=== PATIENT | female | born 1935 | race Caucasian/White ===

== ENCOUNTER 2016-07-20 09:07 | Emergency (ER) | payer OTHER, MEDICAID ==
[~2016-07-20] VITALS: Ht 157.5 cm; Wt 76.5 kg
[~2016-07-20 09:07] MED LIST: ASPI81TA3 PO; ATOR40TA68 PO; CETI-240 PO; CHOL20003 PO; FAMO20TA18 PO; LANT3I SC; LISI-313 PO; MTF1000T PO; ONDA4TAB8 PO; PANT40TA4 PO; TRAM50TA2 PO
[2016-07-20 09:13] VITALS: Ht 157.5 cm; Wt 76.5 kg
[2016-07-20] MEDS ORDERED: METOCLOPRAMIDE 10 MG INJ IV STA (10:11)
[2016-07-20] MEDS ORDERED: SOD CHLORIDE 0.9% 1,000 ML IV STA (10:11)
--- NOTE | 2016-07-20 10:17 | ERD ---
ER Documentation Chief Complaint Date/Time DATE: 07/20/16 TIME: 10:13 Chief Complaint Complains of weakness,vomiting and dizziness x 4 days, HX of Diabestes HPI HPI: Patient is a 81-year-old female who presents with gradual onset, constant, moderate, dull right upper quadrant pain associated with nausea. Denies vomiting or diarrhea, denies fever. States that she feels lightheaded. No vertigo. No palpitations, chest pain, shortness of breath, pain on deep inspiration. Pain radiates to the flank. No constipation or obstipation. Patient's daughter notes that the patient has had these same symptoms for several years intermittently. She seen a GI doctor, but no diagnosis has been established. Occasionally she has had elevated LFTs, which has been attributed to medications. ROS All systems reviewed and are negative except as per history of present illness. Medications Home Meds Active Scripts Famotidine* (Pepcid*) 20 Mg Tablet, 20 MG PO BID, #30 TAB Prov:NOLBERTO LUNDBERG MD 07/20/16 Ondansetron Hcl* (Zofran*) 4 Mg Tablet, 4 MG PO Q8H Y for NAUSEA AND/OR VOMITING , #15 TAB Prov:NOLBERTO LUNDBERG MD 07/20/16 Tramadol HCl (Tramadol HCl) 50 Mg Tablet, 50 MG PO Q8 Y for PAIN, #9 TAB Prov:POOL MELENDEZ MD 11/30/15 Ondansetron Hcl* (Zofran*) 4 Mg Tablet, 4 MG PO Q6H for NAUSEA AND/OR VOMITING, #30 TAB Prov:CHARLIE LOCKHART 10/12/15 Reported Medications Memantine* (Namenda*) 10 Mg Tablet, 10 MG PO DAILY, #30 TAB 07/20/16 Losartan Potassium* (Losartan Potassium*) 25 Mg Tablet, 12.5 MG PO BID, TAB 07/20/16 Aspirin* (Aspirin* EC) 81 Mg Tablet.dr, 81 MG PO DAILY, TAB 07/20/16 Pantoprazole* (Pantoprazole*) 40 Mg Tablet.dr, 40 MG PO AC BREAKFAST, TAB 11/30/15 Insulin Glargine* (Lantus*) 100 Unit/Ml Soln, 35 UNIT SC QHS, #1 VIAL 10/12/15 Atorvastatin* (Atorvastatin*) 40 Mg Tablet, 40 MG PO QHS, #30 TAB 10/12/15 Cholecalciferol (Vitamin D3) (VITAMIN D-3) 2,000 Unit Capsule, 2000 UNIT PO DAILY 05/20/14 Metformin* (Glucophage*) 1,000 Mg Tablet, 1000 MG PO BID WITH MEALS, TAB 03/06/14 Discontinued Reported Medications Aspirin* (Aspirin* Chew) 81 Mg Tab.chew, 81 MG PO DAILY, TAB.CHEW 11/30/15 Cetirizine Hcl* (Cetirizine Hcl*) 10 Mg Tablet, 10 MG PO DAILY, #30 TAB 10/12/15 Lisinopril* (Lisinopril*) 5 Mg Tablet, 5 MG PO DAILY, #30 TAB 10/12/15 Famotidine* (Famotidine*) 20 Mg Tablet, 20 MG PO BID, #60 TAB 10/12/15 Allergies Allergies: Coded Allergies: No Known Allergies (Verified Allergy, Unknown, 10/12/15) PMhx/Soc Past medical history: Diabetes, hypertension, hypercholesterolemia Past surgical history: Remote history of cholecystectomy. Social history: Denies tobacco or alcohol History of Surgery: Yes (cholecystectomy (40 yrs ago)) Anesthesia Reaction: No Hx Neurological Disorder: Yes (headaches ) Hx Respiratory Disorders: No Hx Cardiac Disorders: Yes (HTN, dyslipidemia ) Hx Psychiatric Problems: No Hx Miscellaneous Medical Probl: Yes (DM ) Hx Alcohol Use: No Hx Substance Use: No Hx Tobacco Use: No Smoking Status: Never smoker FmHx Family History: diabetes Physical Exam Vitals Vital Signs Date Time Temp Pulse Resp B/P Pulse Ox O2 Delivery O2 Flow Rate FiO2 07/20/16 11:15 80 20 140/79 99 Room Air 07/20/16 09:13 97.8 92 20 179/79 97 Physical Exam Const: Alert, no acute distress Head: Atraumatic Eyes: Normal Conjunctiva, no pallor or icterus ENT: Normal External Ears, Nose and Mouth. Moist mucous membranes Neck: Full range of motion. No meningismus. Resp: Clear to auscultation bilaterally, no wheezes, no rales Cardio: Regular rate and rhythm, no murmurs Abd: Soft, minimal tenderness in right upper quadrant, non distended. No guarding, no rebound. Skin: No petechiae or rashes, no dermatomal lesions Back: No midline or flank tenderness. No CVA tenderness Ext: No cyanosis, trace edema bilateral ankles Neur: Awake and alert, cranial nerves II through XII intact, no nystagmus, strength and sensation intact in 4 extremities. Psych: Normal Mood and Affect Result Diagram: 07/20/16 1020 07/20/16 1020 Results 24 hrs Laboratory Tests Test 07/20/16 10:20 White Blood Count 8.910^3/ul Red Blood Count 3.8410^6/ul Hemoglobin 10.7g/dl Hematocrit 33.1% Mean Corpuscular Volume 86.2fl Mean Corpuscular Hemoglobin 27.9pg Mean Corpuscular Hemoglobin Concent 32.3g/dl Red Cell Distribution Width 15.3% Platelet Count 53235^3/UL Mean Platelet Volume 9.8fl Neutrophils % 72.1% Lymphocytes % 20.1% Monocytes % 5.2% Eosinophils % 1.6% Basophils % 0.7% Nucleated Red Blood Cells % 0.0/100WBC Neutrophils # 6.410^3/ul Lymphocytes # 1.810^3/ul Monocytes # 0.510^3/ul Eosinophils # 0.110^3/ul Basophils # 0.110^3/ul Nucleated Red Blood Cells # 0.010^3/ul Urine Color LT. YELLOW Urine Clarity CLEAR Urine pH 7.0 Urine Specific [place] 1.010 Urine Ketones NEGATIVE Urine Nitrite NEGATIVE Urine Bilirubin NEGATIVE Urine Urobilinogen 0.2 E.U./dL Urine Leukocyte Esterase TRACE Urine Microscopic RBC NONE SEEN/HPF Urine Microscopic WBC 0-2/HPF Urine Squamous Epithelial Cells FEW Urine Hemoglobin NEGATIVE Urine Glucose NEGATIVE% Urine Total Protein NEGATIVE Sodium Level 140mmol/L Potassium Level 4.3mmol/L Chloride Level 99mmol/L Carbon Dioxide Level 33mmol/L Anion Gap 12 Blood Urea Nitrogen 16mg/dl Creatinine 0.80mg/dl Glucose Level 184mg/dl Calcium Level 9.7mg/dl Total Bilirubin 1.1mg/dl Direct Bilirubin 0.00mg/dl Indirect Bilirubin 1.1mg/dl Aspartate Amino Transf (AST/SGOT) 34IU/L Alanine Aminotransferase (ALT/SGPT) 38IU/L Alkaline Phosphatase 141IU/L Total Protein 7.4g/dl Albumin 4.2g/dl Globulin 3.20g/dl Albumin/Globulin Ratio 1.31 Lipase 102U/L Current Medications Medications (Trade) Dose Ordered Sig/Susan Route PRN Reason Start Time Stop Time Status Last Admin Dose Admin Sodium Chloride (NS) 1,000 ml @ 1,000 mls/hr Q1H STAT IV 07/20/16 10:11 07/20/16 11:10 DC 07/20/16 10:27 Metoclopramide HCl (Reglan) 10 mg ONCE STAT IV 07/20/16 10:11 07/20/16 10:13 DC 07/20/16 10:26 Famotidine (Pepcid Iv) 20 mg ONCE ONCE IV 07/20/16 10:30 07/20/16 10:31 DC 07/20/16 10:26 Procedures/MDM EKG read by me: Time 11 00, rate 101 Rhythm: Sinus tachycardia Sullivan: Normal Intervals: Normal ST-T waves: Nonspecific T-wave changes do not appear ischemic Ectopy: No Q-waves: No Impression: Sinus tachycardia, no evidence of ischemia MDM: Patient is a 81-year-old female with history of chronic intermittent right upper quadrant pain associated with nausea. She seen a capacity planning analyst numerous times without diagnosis. She presents with increased symptoms for the last 3 days. No fever no vomiting or diarrhea no constipation. Labs including LFTs and lipase are unremarkable. The patient states that she feels completely better after receiving Pepcid and Reglan. She has a benign abdominal exam. Patient at this time would like to go home and eat lunch. The patient has had prior CT scans in the setting of the same pain that have not demonstrated acute pathology. The patient has diabetes that is well controlled. Given chronicity of symptoms and benign labs and exam, I believe it is safe to discharge the patient home at this time. I have advised her to return to the ER for any worsening symptoms and to follow-up with her PMD and capacity planning analyst in the next week. I will give her prescription for Zofran and Pepcid for symptomatic treatment. Departure Diagnosis: Primary Impression: Abdominal pain Abdominal location: right upper quadrant Qualified Code: R10.11 - Right upper quadrant abdominal pain Additional Impression: Nausea Condition: NOLBERTO Avila MD Jul 20, 2016 10:16
[2016-07-20] MEDS ORDERED: FAMOTIDINE 20 MG INJ IV ONE (10:30)
[2016-07-20 10:32] LABS: ADD SCAN DIFF NO
[2016-07-20 10:35] LABS: ADD UMIC YES; URINE BILIRUBIN (Dip) NEGATIVE (NEGATIVE); URINE BLOOD (Dip) NEGATIVE (NEGATIVE); URINE COLOR LT. YELLOW (YELLOW); URINE GLUCOSE (Dip) NEGATIVE (NEGATIVE); URINE KETONES (Dip) NEGATIVE (NEGATIVE); URINE LEUKOCYTE ESTERASE (Dip) TRACE (NEGATIVE); URINE NITRITE (Dip) NEGATIVE (NEGATIVE); URINE TOTAL PROTEIN (Dip) NEGATIVE (NEGATIVE); URINE UROBILINOGEN (Dip) 0.2 E.U./dL (0.1-1.0)
[2016-07-20 10:38] LABS: BASOPHIL # 0.1 10^3/ul (0.0-0.1); BASOPHILS % 0.7 % (0.0-2.0); EOSINOPHILS # 0.1 10^3/ul (0.0-0.5); EOSINOPHILS % 1.6 % (0.0-7.0); HEMATOCRIT 33.1 % (37.0-47.0); HEMOGLOBIN 10.7 g/dl (12.0-16.0); LYMPHOCYTES # 1.8 10^3/ul (0.8-2.9); LYMPHOCYTES % 20.1 % (15.0-51.0); MEAN CORPUSCULAR HEMOGLOBIN 27.9 pg (29.0-33.0); MEAN CORPUSCULAR HGB CONC 32.3 g/dl (32.0-37.0); MEAN CORPUSCULAR VOLUME 86.2 fl (82.0-101.0); MEAN PLATELET VOLUME 9.8 fl (7.4-10.4); MONOCYTE # 0.5 10^3/ul (0.3-0.9); MONOCYTES % 5.2 % (0.0-11.0); NEUTROPHIL # 6.4 10^3/ul (1.6-7.5); NEUTROPHILS % 72.1 % (39.0-77.0); PLATELET COUNT 293 10^3/UL (140-415); RED BLOOD COUNT 3.84 10^6/ul (4.20-5.40); RED CELL DISTRIBUTION WIDTH 15.3 % (11.5-14.5); WHITE BLOOD COUNT 8.9 10^3/ul (4.8-10.8)
[2016-07-20 10:48] LABS: ALBUMIN 4.2 g/dl (3.3-4.9)
[2016-07-20 10:49] LABS: POTASSIUM 4.3 mmol/L (3.5-5.1); SQUAMOUS EPITHELIAL CELL,UR FEW; URINE RBCS NONE SEEN /HPF (0)
[2016-07-20 10:51] LABS: ALBUMIN/GLOBULIN RATIO 1.31; BILIRUBIN,INDIRECT 1.1 mg/dl (0-1.1); BILIRUBIN,TOTAL 1.1 mg/dl (0.2-1.3); CREATININE 0.8 mg/dl (0.44-1.00); TOTAL PROTEIN 7.4 g/dl (6.1-8.1)
[2016-07-20 10:52] LABS: CALCIUM 9.7 mg/dl (8.4-10.2)
[2016-07-20 11:15] VITALS: BP 140/79; PULSE 80; RESP 20
[2016-07-20] MEDS ORDERED: ASPI-664 PO (12:12)
[2016-07-20] MEDS ORDERED: LOSA25TA5 PO (12:13)
[2016-07-20] MEDS ORDERED: MEMA10TA16 PO (12:14)
[2016-07-20] MEDS ORDERED: FAMO-18 PO (12:32)
[2016-07-20] MEDS ORDERED: ONDA4TAB8 PO (12:32)
== END 2016-07-20 12:39 | disposition home or self-care (01) ==
LOC: E/R 09:07
DX: R10.11 Right upper quadrant pain (principal); R11.0 Nausea; I10 Essential (primary) hypertension; E11.9 Type 2 diabetes mellitus without complications; Z79.4 Long term (current) use of insulin; Z79.82 Long term (current) use of aspirin; Z79.84 Long term (current) use of oral hypoglycemic drugs
CPT/HCPCS: 36415; 80053; 81001; 83690; 85025; 93005; 96374; 96375; 99284; J2765; J7030; 81003

== ENCOUNTER 2016-07-25 07:42 | Emergency (ER) | payer OTHER, MEDICAID ==
[~2016-07-25] VITALS: Ht 160 cm; Wt 79.6 kg
[~2016-07-25 07:42] MED LIST changes: +ASPI-664 PO; -ASPI81TA3 PO; -CETI-240 PO; +FAMO-18 PO; -FAMO20TA18 PO; -LISI-313 PO; +LOSA25TA5 PO; +MEMA10TA16 PO
[2016-07-25 07:47] VITALS: Ht 160 cm; Wt 79.6 kg
[2016-07-25] MEDS ORDERED: SOD CHLORIDE 0.9% 1,000 ML IV STA (08:04)
[2016-07-25] MEDS ORDERED: morphine 4 MG/ML VIAL IV STA (08:04)
[2016-07-25] MEDS ORDERED: ONDANSETRON 4 MG INJ IV STA (08:04)
[2016-07-25 08:05] VITALS: TEMP 98.9
--- NOTE | 2016-07-25 08:38 | RADRPT ---
PROCEDURE: XR Chest. CLINICAL INDICATION: Chest pain , abdominal pain TECHNIQUE: Single frontal view of the chest was obtained COMPARISON: 10/12/2015 FINDINGS: The heart is enlarged. The thoracic aorta is calcified. The lungs are clear. There is no pleural effusion or pneumothorax. RPTAT: AA IMPRESSION: Mild cardiomegaly. Calcified aorta consistent with atherosclerotic disease. .Nemesio Daniel MD, MD Date Time Electronically viewed and signed by .Nemesio Daniel MD, on 07/25/2016 08:38 .S/
[2016-07-25 08:39] LABS: ADD SCAN DIFF NO
[2016-07-25 08:47] LABS: BASOPHILS % 0.3 % (0.0-2.0); EOSINOPHILS # 0.2 10^3/ul (0.0-0.5); EOSINOPHILS % 1.9 % (0.0-7.0); HEMATOCRIT 33.8 % (37.0-47.0); LYMPHOCYTES # 2.1 10^3/ul (0.8-2.9); LYMPHOCYTES % 22.4 % (15.0-51.0); MEAN CORPUSCULAR HEMOGLOBIN 27.8 pg (29.0-33.0); MEAN CORPUSCULAR HGB CONC 32.5 g/dl (32.0-37.0); MEAN CORPUSCULAR VOLUME 85.4 fl (82.0-101.0); MEAN PLATELET VOLUME 9.9 fl (7.4-10.4); MONOCYTE # 0.5 10^3/ul (0.3-0.9); MONOCYTES % 5.7 % (0.0-11.0); NEUTROPHIL # 6.4 10^3/ul (1.6-7.5); NEUTROPHILS % 69.3 % (39.0-77.0); PLATELET COUNT 304 10^3/UL (140-415); RED BLOOD COUNT 3.96 10^6/ul (4.20-5.40); RED CELL DISTRIBUTION WIDTH 15.2 % (11.5-14.5); WHITE BLOOD COUNT 9.2 10^3/ul (4.8-10.8)
[2016-07-25 08:57] LABS: ALBUMIN 4.6 g/dl (3.3-4.9); CHLORIDE 101 mmol/L (97-110)
[2016-07-25 08:58] LABS: POTASSIUM 3.6 mmol/L (3.5-5.1); SODIUM 143 mmol/L (135-144)
[2016-07-25 09:00] LABS: ALANINE AMINOTRANSFERASE 40 IU/L (13-69); ALBUMIN/GLOBULIN RATIO 1.27; ALKALINE PHOSPHATASE 127 IU/L (42-121); ANION GAP 17 (8-16); ASPARTATE AMINO TRANSFERASE 37 IU/L (15-46); BILIRUBIN,INDIRECT 0.8 mg/dl (0-1.1); BILIRUBIN,TOTAL 0.8 mg/dl (0.2-1.3); BLOOD UREA NITROGEN 16 mg/dl (7-20); CARBON DIOXIDE 29 mmol/L (21-31); CREATININE 0.86 mg/dl (0.44-1.00); GLUCOSE 182 mg/dl (70-220); TOTAL PROTEIN 8.2 g/dl (6.1-8.1)
[2016-07-25 09:01] LABS: CALCIUM 9.9 mg/dl (8.4-10.2)
[2016-07-25 09:13] LABS: TROPONIN-I < 0.012 ng/ml (0.00-0.12)
--- NOTE | 2016-07-25 10:08 | RADRPT ---
PROCEDURE: CT Head without contrast. CLINICAL INDICATION: Headache TECHNIQUE: Continuous axial CT images were obtained from the base of skull to the vertex. No cont rast was administered. The calculated radiation dose measures 630 mGy centimeters. The CTDI measures 45 mGy COMPARISON: No prior studies are available for comparison. FINDINGS: There is mild to moderate diffuse cerebral volume loss. The ventricles are symmetric and normal in configuration. There is no mass effect or midline shift. There is no abnormal intra-axial or extra -axial fluid collection. There is no evidence of intracranial hemorrhage. There are scattered areas of decreased attenuation in the supratentorial white matter, consistent wi th mild to moderate small vessel ischemic changes. There is minimal atherosclerotic vascular calcifi cation. The bony calvarium is intact. The orbital soft tissue contents are unremarkable. Paranasal sinuses appear clear. IMPRESSION: 1. Mild to moderate age related cerebral volume loss. Mild to moderate small vessel ischemic tong es. 2. Minimal atherosclerotic vascular calcification. 3. No mass effect or acute intracranial bleed. RPTAT: DD .Yariel Peña MD, Date Time Electronically viewed and signed by .Yariel Peña MD, on 07/25/2016 10:08 .T/
--- NOTE | 2016-07-25 10:21 | RADRPT ---
PROCEDURE: CT abdomen and pelvis without contrast. CLINICAL INDICATION: Abdominal Pain TECHNIQUE: CT scan of the abdomen and pelvis without contrast was performed. The patient was scan evaristo without intravenous contrast. 3-D coronal reformatted images were obtained from the axial [facility] e images. The calculated radiation dose measures 1040 mGy centimeters. The CTDI measures 18 mGy COMPARISON: 10/12/2015 FINDINGS: CT abdomen: There is moderate aortic valve calcification and coronary artery calcification. There are scattered small 2 to 3 mm lung nodules, seen for example in the left lower lobe on image 03-04, in the lingul a on image 03-08, and in the right lower lobe on image 03-24. The liver is normal in size and density, without intrahepatic biliary dilatation. The spleen and p ancreas are unremarkable noncontrast appearance. The gallbladder is not seen, likely surgically abse nt.. The adrenal glands are symmetric and normal. The kidneys appear normal in size and contour. No renal calculus or hydronephrosis is visualized. There is no ascites or retroperitoneal lymphadenopathy. There is moderate aortic and branch vessel c alcification. There is a duodenal diverticulum is, approximately 2 cm. There is colonic diverticulosis, without vi sualized diverticulitis. The appendix appears normal. CT pelvis: The urinary bladder appears normal. The pelvic organs are within normal limits. There is no abnorm al pelvic mass or adenopathy. There is no pelvic free fluid. Visualized osseous structures appear unremarkable. IMPRESSION: 1. Moderate aortic valve calcification and coronary artery calcification. 2. Scattered 2 to 3 mm lung nodules at the lung bases. 12-month follow-up is recommended if there are risk factors for lung cancer. 3. The appendix is seen and appears within normal limits. No renal calculi or hydronephrosis. 4. Duodenal diverticulum. 5. Colonic diverticulosis, without visualized diverticulitis. RPTAT: DD .Yariel Peña MD, Date Time Electronically viewed and signed by .Yariel Peña MD, MD on 07/25/2016 10:21 .T/
[2016-07-25 10:33] LABS: ADD UMIC NO; URINE BILIRUBIN (Dip) NEGATIVE (NEGATIVE); URINE BLOOD (Dip) NEGATIVE (NEGATIVE); URINE COLOR LT. YELLOW (YELLOW); URINE GLUCOSE (Dip) NEGATIVE (NEGATIVE); URINE KETONES (Dip) NEGATIVE (NEGATIVE); URINE LEUKOCYTE ESTERASE (Dip) NEGATIVE (NEGATIVE); URINE NITRITE (Dip) NEGATIVE (NEGATIVE); URINE TOTAL PROTEIN (Dip) NEGATIVE (NEGATIVE); URINE UROBILINOGEN (Dip) 0.2 E.U./dL (0.1-1.0)
[2016-07-25 10:43] VITALS: BP 139/64; PULSE 64; RESP 13
[2016-07-25] MEDS ORDERED: DOCU-144 PO (10:56)
[2016-07-25] MEDS ORDERED: ONDA4TAB14 PO (10:56)
[2016-07-25] MEDS ORDERED: HYDR-906 PO (10:56)
--- NOTE | 2016-07-25 10:58 | ERD ---
ER Documentation Chief Complaint Date/Time DATE: 07/25/16 TIME: 10:57 Chief Complaint seen last thursday with same, back,abd,shakey ,sob due pain ROS All systems reviewed and are negative except as per history of present illness. Medications Home Meds Active Scripts Docusate Sodium* (Colace*) 100 Mg Capsule, 100 MG PO TID, #30 CAP Prov:IVA DAUGHERTY MD 07/25/16 Ondansetron (Ondansetron Odt) 4 Mg Tab.rapdis, 4 MG PO Q6H Y for NAUSEA AND/OR VOMITING, #30 TAB Prov:IVA DAUGHERTY MD 07/25/16 Hydrocodone/Acetaminophen ([place] 5-325 Tablet) 1 Each Tablet, 1 TAB PO Q6H Y for PAIN, #7 TAB Prov:IVA DAUGHERTY MD 07/25/16 Reported Medications Memantine* (Namenda*) 10 Mg Tablet, 10 MG PO DAILY, #30 TAB 07/20/16 Losartan Potassium* (Losartan Potassium*) 25 Mg Tablet, 12.5 MG PO BID, TAB 07/20/16 Aspirin* (Aspirin* EC) 81 Mg Tablet.dr, 81 MG PO DAILY, TAB 07/20/16 Pantoprazole* (Pantoprazole*) 40 Mg Tablet.dr, 40 MG PO AC BREAKFAST, TAB 11/30/15 Insulin Glargine* (Lantus*) 100 Unit/Ml Soln, 35 UNIT SC QHS, #1 VIAL 10/12/15 Atorvastatin* (Atorvastatin*) 40 Mg Tablet, 40 MG PO QHS, #30 TAB 10/12/15 Cholecalciferol (Vitamin D3) (VITAMIN D-3) 2,000 Unit Capsule, 2000 UNIT PO DAILY 05/20/14 Metformin* (Glucophage*) 1,000 Mg Tablet, 1000 MG PO BID WITH MEALS, TAB 03/06/14 Discontinued Reported Medications Aspirin* (Aspirin* Chew) 81 Mg Tab.chew, 81 MG PO DAILY, TAB.CHEW 11/30/15 Cetirizine Hcl* (Cetirizine Hcl*) 10 Mg Tablet, 10 MG PO DAILY, #30 TAB 10/12/15 Lisinopril* (Lisinopril*) 5 Mg Tablet, 5 MG PO DAILY, #30 TAB 10/12/15 Famotidine* (Famotidine*) 20 Mg Tablet, 20 MG PO BID, #60 TAB 10/12/15 Discontinued Scripts Famotidine* (Pepcid*) 20 Mg Tablet, 20 MG PO BID, #30 TAB Prov:NOLBERTO LUNDBERG MD 07/20/16 Ondansetron Hcl* (Zofran*) 4 Mg Tablet, 4 MG PO Q8H Y for NAUSEA AND/OR VOMITING , #15 TAB Prov:NOLBERTO LUNDBERG MD 07/20/16 Tramadol HCl (Tramadol HCl) 50 Mg Tablet, 50 MG PO Q8 Y for PAIN, #9 TAB Prov:POOL MELENDEZ MD 11/30/15 Ondansetron Hcl* (Zofran*) 4 Mg Tablet, 4 MG PO Q6H for NAUSEA AND/OR VOMITING, #30 TAB Prov:CHARLIE LOCKHART 10/12/15 Allergies Allergies: Coded Allergies: No Known Allergies (Verified Allergy, Unknown, 10/12/15) PMhx/Soc History of Surgery: Yes (cholecystectomy (40 yrs ago)) Anesthesia Reaction: No Hx Neurological Disorder: Yes (headaches ) Hx Respiratory Disorders: No Hx Cardiac Disorders: Yes (HTN, dyslipidemia ) Hx Psychiatric Problems: No Hx Miscellaneous Medical Probl: Yes (DM ) Hx Alcohol Use: No Hx Substance Use: No Hx Tobacco Use: No Physical Exam Vitals Vital Signs Date Time Temp Pulse Resp B/P Pulse Ox O2 Delivery O2 Flow Rate FiO2 07/25/16 10:43 64 13 139/64 96 Room Air 07/25/16 08:05 98.9 86 17 176/75 98 Room Air 07/25/16 07:47 98.1 88 20 170/79 99 Physical Exam Const: [] Head: Atraumatic Eyes: Normal Conjunctiva ENT: Normal External Ears, Nose and Mouth. Neck: Full range of motion..~ No meningismus. Resp: Clear to auscultation bilaterally Cardio: Regular rate and rhythm, no murmurs Abd: Soft, non tender, non distended. Normal bowel sounds Skin: No petechiae or rashes Back: No midline or flank tenderness Ext: No cyanosis, or edema Neur: Awake and alert Psych: Normal Mood and Affect Result Diagram: 07/25/16 0825 07/25/16 0825 Results 24 hrs Laboratory Tests Test 07/25/16 08:25 07/25/16 10:05 White Blood Count 9.210^3/ul Red Blood Count 3.9610^6/ul Hemoglobin 11.0g/dl Hematocrit 33.8% Mean Corpuscular Volume 85.4fl Mean Corpuscular Hemoglobin 27.8pg Mean Corpuscular Hemoglobin Concent 32.5g/dl Red Cell Distribution Width 15.2% Platelet Count 13069^3/UL Mean Platelet Volume 9.9fl Neutrophils % 69.3% Lymphocytes % 22.4% Monocytes % 5.7% Eosinophils % 1.9% Basophils % 0.3% Nucleated Red Blood Cells % 0.0/100WBC Neutrophils # 6.410^3/ul Lymphocytes # 2.110^3/ul Monocytes # 0.510^3/ul Eosinophils # 0.210^3/ul Basophils # 0.010^3/ul Nucleated Red Blood Cells # 0.010^3/ul Sodium Level 143mmol/L Potassium Level 3.6mmol/L Chloride Level 101mmol/L Carbon Dioxide Level 29mmol/L Anion Gap 17 Blood Urea Nitrogen 16mg/dl Creatinine 0.86mg/dl Glucose Level 182mg/dl Calcium Level 9.9mg/dl Total Bilirubin 0.8mg/dl Direct Bilirubin 0.00mg/dl Indirect Bilirubin 0.8mg/dl Aspartate Amino Transf (AST/SGOT) 37IU/L Alanine Aminotransferase (ALT/SGPT) 40IU/L Alkaline Phosphatase 127IU/L Troponin I < 0.012ng/ml Total Protein 8.2g/dl Albumin 4.6g/dl Globulin 3.60g/dl Albumin/Globulin Ratio 1.27 Lipase 99U/L Urine Color LT. YELLOW Urine Clarity CLEAR Urine pH 6.0 Urine Specific [place] <=1.005 Urine Ketones NEGATIVE Urine Nitrite NEGATIVE Urine Bilirubin NEGATIVE Urine Urobilinogen 0.2 E.U./dL Urine Leukocyte Esterase NEGATIVE Urine Hemoglobin NEGATIVE Urine Glucose NEGATIVE% Urine Total Protein NEGATIVE Current Medications Medications (Trade) Dose Ordered Sig/Susan Route PRN Reason Start Time Stop Time Status Last Admin Dose Admin Sodium Chloride (NS) 1,000 ml @ 1,000 mls/hr Q1H STAT IV 07/25/16 08:04 07/25/16 09:03 DC 07/25/16 08:38 Morphine Sulfate (morphine) 4 mg ONCE STAT IV 07/25/16 08:04 07/25/16 08:05 DC 07/25/16 08:38 Ondansetron HCl (Zofran Inj) 4 mg ONCE STAT IV 07/25/16 08:04 07/25/16 08:05 DC 07/25/16 08:37 Procedures/MDM EKG read by me: Rate/Rhythm: Regular rate and rhythm at a rate of 79 Intervals: Normal Impression: No evidence of ischemia or arrhythmia Departure Diagnosis: Primary Impression: Headache Additional Impression: Abdominal pain Condition: Fair Patient Instructions: Abdominal Pain, Self-Care for Headaches Additional Instructions: Llame al doctor MAANA y gerardo suki SUSAN PARA DENTRO DE 1-2 LEES.Dgale a la secretaria que nosotros le instruimos hacer esta susan.Avise o llame si garvey condicin se empeora antes de la susan. Regresa aqui si peor o no mejor. IVA DAUGHERTY MD Jul 25, 2016 10:58
== END 2016-07-25 11:16 | disposition home or self-care (01) ==
LOC: E/R 07:42
DX: R51 Headache (principal); R10.9 Unspecified abdominal pain; E11.9 Type 2 diabetes mellitus without complications; I10 Essential (primary) hypertension; Z79.82 Long term (current) use of aspirin; Z79.84 Long term (current) use of oral hypoglycemic drugs
CPT/HCPCS: 70450; 71010; 74176; 80053; 81003; 83690; 84484; 85025; 93005; J2270; J2405; J7030; 36415; 96374; 96375

== ENCOUNTER 2016-07-27 04:25 | Emergency (ER) | payer OTHER, MEDICAID ==
[~2016-07-27] VITALS: Ht 162.6 cm; Wt 76.5 kg
[~2016-07-27 04:25] MED LIST changes: +DOCU-144 PO; -FAMO-18 PO; +HYDR-906 PO; +ONDA4TAB14 PO; -ONDA4TAB8 PO; -TRAM50TA2 PO
[2016-07-27 04:30] VITALS: Ht 162.6 cm; Wt 76.5 kg
[2016-07-27 05:18] VITALS: TEMP 98.2
[2016-07-27 05:25] LABS: ADD SCAN DIFF NO
[2016-07-27 05:40] LABS: BASOPHIL # 0.1 10^3/ul (0.0-0.1); BASOPHILS % 0.5 % (0.0-2.0); EOSINOPHILS # 0.3 10^3/ul (0.0-0.5); EOSINOPHILS % 2.7 % (0.0-7.0); HEMATOCRIT 33.6 % (37.0-47.0); HEMOGLOBIN 10.9 g/dl (12.0-16.0); LYMPHOCYTES # 2.9 10^3/ul (0.8-2.9); MEAN CORPUSCULAR HEMOGLOBIN 27.9 pg (29.0-33.0); MEAN CORPUSCULAR HGB CONC 32.4 g/dl (32.0-37.0); MEAN CORPUSCULAR VOLUME 85.9 fl (82.0-101.0); MEAN PLATELET VOLUME 10.5 fl (7.4-10.4); MONOCYTE # 0.6 10^3/ul (0.3-0.9); MONOCYTES % 6.8 % (0.0-11.0); NEUTROPHIL # 5.3 10^3/ul (1.6-7.5); NEUTROPHILS % 57.6 % (39.0-77.0); PLATELET COUNT 251 10^3/UL (140-415); RED BLOOD COUNT 3.91 10^6/ul (4.20-5.40); RED CELL DISTRIBUTION WIDTH 15.4 % (11.5-14.5); WHITE BLOOD COUNT 9.2 10^3/ul (4.8-10.8)
[2016-07-27 05:51] LABS: ALBUMIN 4.4 g/dl (3.3-4.9)
[2016-07-27 05:52] LABS: CHLORIDE 101 mmol/L (97-110); POTASSIUM 4.3 mmol/L (3.5-5.1); SODIUM 140 mmol/L (135-144)
[2016-07-27 05:54] LABS: ALBUMIN/GLOBULIN RATIO 1.25; ANION GAP 13 (8-16); ASPARTATE AMINO TRANSFERASE 37 IU/L (15-46); BILIRUBIN,INDIRECT 0.9 mg/dl (0-1.1); BILIRUBIN,TOTAL 0.9 mg/dl (0.2-1.3); CARBON DIOXIDE 30 mmol/L (21-31); CREATININE 0.79 mg/dl (0.44-1.00); TOTAL PROTEIN 7.9 g/dl (6.1-8.1)
[2016-07-27 05:55] LABS: ALANINE AMINOTRANSFERASE 34 IU/L (13-69); ALKALINE PHOSPHATASE 130 IU/L (42-121); BLOOD UREA NITROGEN 11 mg/dl (7-20); CALCIUM 9.5 mg/dl (8.4-10.2); GLUCOSE 155 mg/dl (70-220)
[2016-07-27 06:00] LABS: ADD UMIC NO; URINE BILIRUBIN (Dip) NEGATIVE (NEGATIVE); URINE BLOOD (Dip) NEGATIVE (NEGATIVE); URINE COLOR LT. YELLOW (YELLOW); URINE GLUCOSE (Dip) NEGATIVE (NEGATIVE); URINE KETONES (Dip) NEGATIVE (NEGATIVE); URINE LEUKOCYTE ESTERASE (Dip) NEGATIVE (NEGATIVE); URINE NITRITE (Dip) NEGATIVE (NEGATIVE); URINE TOTAL PROTEIN (Dip) NEGATIVE (NEGATIVE); URINE UROBILINOGEN (Dip) 0.2 E.U./dL (0.1-1.0)
[2016-07-27] MEDS ORDERED: ASPIRIN 81 MG TAB PO STA (06:09)
[2016-07-27] MEDS ORDERED: NITROGLYCERIN 2% 1 GM OINT PKT TD STA (06:09)
[2016-07-27 06:16] LABS: TROPONIN-I < 0.012 ng/ml (0.00-0.12)
[2016-07-27] MEDS ORDERED: NITROGLYCERIN (SL) 0.4 MG TAB SL PRN (06:30)
--- NOTE | 2016-07-27 07:30 | RADRPT ---
PROCEDURE: CHEST - 1 VIEW CLINICAL INDICATION: 81-year-old female with chest pain. TECHNIQUE: A single frontal AP semi-erect portable view of the chest was performed. The images we re reviewed on a PACS workstation. COMPARISON: Chest x-ray July 25, 2016; CT abdomen/pelvis July 25, 2016. FINDINGS: The cardiomediastinal silhouette is prominent but within normal limits. The thoracic aortic arch is calcified.. There is no evidence for an infiltrate. There is no evidence for congestive heart carolyn lure. There is no evidence for pneumothorax. The osseous structures are intact. IMPRESSION: 1. No evidence for active cardiopulmonary disease. 2. Calcified thoracic aortic arch. .Tristan Hernández MD, Date Time Electronically viewed and signed by .Tristan Hernández MD, on 07/27/2016 07:30 .Anali/
[2016-07-27] MEDS ORDERED: TRAM50TA2 PO (07:32)
--- NOTE | 2016-07-27 08:29 | ERD ---
ER Documentation Chief Complaint Date/Time DATE: 07/27/16 TIME: 08:28 Chief Complaint abdominal pain, chest pain x 4 days HPI Patient is a 81-year-old female with hypertension and diabetes who presents with chest pain and abdominal pain. The patient says that she has had chest pain for the past 4 days as well as midepigastric abdominal pain. She says the pain has been constant. She denies fevers. Upon review of old medical records this is the patient's 11th visit to the ER since 2009. She was seen 2 days ago for similar type complaints and I saw her at that time. She was seen 2 days prior to that as well. Her primary doctor is Dr. Scanlon. ROS All systems reviewed and are negative except as per history of present illness. Medications Home Meds Active Scripts Tramadol HCl (Tramadol HCl) 50 Mg Tablet, 50 MG PO Q4 Y for PAIN, #10 TAB Prov:IVA DAUGHERTY MD 07/27/16 Docusate Sodium* (Colace*) 100 Mg Capsule, 100 MG PO TID, #30 CAP Prov:VIA DAUGHERTY MD 07/25/16 Ondansetron (Ondansetron Odt) 4 Mg Tab.rapdis, 4 MG PO Q6H Y for NAUSEA AND/OR VOMITING, #30 TAB Prov:IVA DAUGHERTY MD 07/25/16 Hydrocodone/Acetaminophen ([place] 5-325 Tablet) 1 Each Tablet, 1 TAB PO Q6H Y for PAIN, #7 TAB Prov:IVA DAUGHERTY MD 07/25/16 Reported Medications Memantine* (Namenda*) 10 Mg Tablet, 10 MG PO DAILY, #30 TAB 07/20/16 Losartan Potassium* (Losartan Potassium*) 25 Mg Tablet, 12.5 MG PO BID, TAB 07/20/16 Aspirin* (Aspirin* EC) 81 Mg Tablet.dr, 81 MG PO DAILY, TAB 07/20/16 Pantoprazole* (Pantoprazole*) 40 Mg Tablet.dr, 40 MG PO AC BREAKFAST, TAB 11/30/15 Insulin Glargine* (Lantus*) 100 Unit/Ml Soln, 35 UNIT SC QHS, #1 VIAL 10/12/15 Atorvastatin* (Atorvastatin*) 40 Mg Tablet, 40 MG PO QHS, #30 TAB 10/12/15 Cholecalciferol (Vitamin D3) (VITAMIN D-3) 2,000 Unit Capsule, 2000 UNIT PO DAILY 05/20/14 Metformin* (Glucophage*) 1,000 Mg Tablet, 1000 MG PO BID WITH MEALS, TAB 03/06/14 Discontinued Reported Medications Aspirin* (Aspirin* Chew) 81 Mg Tab.chew, 81 MG PO DAILY, TAB.CHEW 11/30/15 Cetirizine Hcl* (Cetirizine Hcl*) 10 Mg Tablet, 10 MG PO DAILY, #30 TAB 10/12/15 Lisinopril* (Lisinopril*) 5 Mg Tablet, 5 MG PO DAILY, #30 TAB 10/12/15 Famotidine* (Famotidine*) 20 Mg Tablet, 20 MG PO BID, #60 TAB 10/12/15 Discontinued Scripts Famotidine* (Pepcid*) 20 Mg Tablet, 20 MG PO BID, #30 TAB Prov:NOLBERTO LUNDBERG MD 07/20/16 Ondansetron Hcl* (Zofran*) 4 Mg Tablet, 4 MG PO Q8H Y for NAUSEA AND/OR VOMITING , #15 TAB Prov:NOLBERTO LUNDBERG MD 07/20/16 Tramadol HCl (Tramadol HCl) 50 Mg Tablet, 50 MG PO Q8 Y for PAIN, #9 TAB Prov:POOL MELENDEZ MD 11/30/15 Ondansetron Hcl* (Zofran*) 4 Mg Tablet, 4 MG PO Q6H for NAUSEA AND/OR VOMITING, #30 TAB Prov:CHARLIE LOCKHART 10/12/15 Allergies Allergies: Coded Allergies: No Known Allergies (Verified Allergy, Unknown, 10/12/15) PMhx/Soc History of Surgery: Yes (cholecystectomy (40 yrs ago)) Anesthesia Reaction: No Hx Neurological Disorder: Yes (headaches ) Hx Respiratory Disorders: No Hx Cardiac Disorders: Yes (HTN, dyslipidemia ) Hx Psychiatric Problems: No Hx Miscellaneous Medical Probl: Yes (DM ) Hx Alcohol Use: No Hx Substance Use: No Hx Tobacco Use: No Smoking Status: Never smoker FmHx Family History: No coronary disease Physical Exam Vitals Vital Signs Date Time Temp Pulse Resp B/P Pulse Ox O2 Delivery O2 Flow Rate FiO2 07/27/16 06:19 85 155/80 07/27/16 05:18 98.2 79 20 169/76 98 Room Air 07/27/16 04:30 98.2 72 20 190/89 98 Physical Exam Const: Mild distress secondary to pain Head: Atraumatic Eyes: Normal Conjunctiva ENT: Normal External Ears, Nose and Mouth. Neck: Full range of motion..~ No meningismus. Resp: Clear to auscultation bilaterally Cardio: Regular rate and rhythm, no murmurs Abd: Soft, midepigastric pain without rebound or guarding Skin: No petechiae or rashes Back: No midline or flank tenderness Ext: No cyanosis, or edema Neur: Awake and alert Psych: Normal Mood and Affect Result Diagram: 07/27/16 0505 07/27/16 0505 Results 24 hrs Laboratory Tests Test 07/27/16 05:05 White Blood Count 9.210^3/ul Red Blood Count 3.9110^6/ul Hemoglobin 10.9g/dl Hematocrit 33.6% Mean Corpuscular Volume 85.9fl Mean Corpuscular Hemoglobin 27.9pg Mean Corpuscular Hemoglobin Concent 32.4g/dl Red Cell Distribution Width 15.4% Platelet Count 21240^3/UL Mean Platelet Volume 10.5fl Neutrophils % 57.6% Lymphocytes % 32.0% Monocytes % 6.8% Eosinophils % 2.7% Basophils % 0.5% Nucleated Red Blood Cells % 0.0/100WBC Neutrophils # 5.310^3/ul Lymphocytes # 2.910^3/ul Monocytes # 0.610^3/ul Eosinophils # 0.310^3/ul Basophils # 0.110^3/ul Nucleated Red Blood Cells # 0.010^3/ul Urine Color LT. YELLOW Urine Clarity CLEAR Urine pH 6.5 Urine Specific [place] <=1.005 Urine Ketones NEGATIVE Urine Nitrite NEGATIVE Urine Bilirubin NEGATIVE Urine Urobilinogen 0.2 E.U./dL Urine Leukocyte Esterase NEGATIVE Urine Hemoglobin NEGATIVE Urine Glucose NEGATIVE% Urine Total Protein NEGATIVE Sodium Level 140mmol/L Potassium Level 4.3mmol/L Chloride Level 101mmol/L Carbon Dioxide Level 30mmol/L Anion Gap 13 Blood Urea Nitrogen 11mg/dl Creatinine 0.79mg/dl Glucose Level 155mg/dl Calcium Level 9.5mg/dl Total Bilirubin 0.9mg/dl Direct Bilirubin 0.00mg/dl Indirect Bilirubin 0.9mg/dl Aspartate Amino Transf (AST/SGOT) 37IU/L Alanine Aminotransferase (ALT/SGPT) 34IU/L Alkaline Phosphatase 130IU/L Troponin I < 0.012ng/ml Total Protein 7.9g/dl Albumin 4.4g/dl Globulin 3.50g/dl Albumin/Globulin Ratio 1.25 Lipase 113U/L Current Medications Medications (Trade) Dose Ordered Sig/Susan Route PRN Reason Start Time Stop Time Status Last Admin Dose Admin Aspirin (Aspirin) 162 mg ONCE STAT PO 07/27/16 06:09 07/27/16 06:10 DC 07/27/16 06:14 Nitroglycerin (Nitroglycerin 2% Oint) 1 inch ONCE STAT TD 07/27/16 06:09 07/27/16 06:10 DC 07/27/16 06:14 Nitroglycerin (Nitroglycerin (Sl Tab) 0.4 Mg) 1 tab Q5M UP TO 3 DOSES PRN SL CHEST PAIN 07/27/16 06:30 Procedures/MDM EKG #1 read by me: Rate/Rhythm: Regular rate and rhythm at a rate of 77 Intervals: Normal Impression: No evidence of ischemia or arrhythmia EKG #2 read by me: Rate/Rhythm: Regular rate and rhythm at a rate of 80 Intervals: Normal Impression: No evidence of ischemia or arrhythmia PROCEDURE: CHEST - 1 VIEW CLINICAL INDICATION: 81-year-old female with chest pain. TECHNIQUE: A single frontal AP semi-erect portable view of the chest was performed. The images were reviewed on a PACS workstation. COMPARISON: Chest x-ray July 25, 2016; CT abdomen/pelvis July 25, 2016. FINDINGS: The cardiomediastinal silhouette is prominent but within normal limits. The thoracic aortic arch is calcified.. There is no evidence for an infiltrate. There is no evidence for congestive heart failure. There is no evidence for pneumothorax. The osseous structures are intact. IMPRESSION: 1. No evidence for active cardiopulmonary disease. 2. Calcified thoracic aortic arch. .Tristan Hernández MD, Date Time Electronically viewed and signed by .Tristan Hernández MD, on 07/27/2016 07:30 Patient is a 81-year-old female who presents with chest pain and abdominal pain. The patient had a full workup in the emergency department which is basically normal. I took care of her 2 days ago when she had laboratory tests that were normal as well as a CT scan of the abdomen pelvis and CT head which were also normal. She has had her gallbladder removed in the past and I doubt cholecystitis. At this point I doubt pancreatitis, appendicitis, or bowel obstruction. Given the fact that she has been removed department 3 times in the past few days I did want to admit her to the hospital. Her insurance is [employer] and I spoke with Dr. Silva who is the [facility] hospitalist. Dr. Silva does not want to admit her at this time as she does not feel that there is indication for admission but she will arrange for outpatient follow-up with cardiology within 24 hours. I feel this is a reasonable plan. At this point I see no signs of obvious acute coronary syndrome. I doubt pneumonia, pneumothorax, pulmonary embolism, or aortic dissection. The patient will be given a prescription for tramadol. She can return to the ER for any worsening symptoms. Departure Diagnosis: Primary Impression: Chest pain Chest pain type: unspecified Qualified Code: R07.9 - Chest pain, unspecified type Additional Impression: Abdominal pain Abdominal location: epigastric Qualified Code: R10.13 - Epigastric pain Condition: Fair Patient Instructions: Abdominal Pain, Chest Pain, Uncertain Cause Referrals: [facility] Machine Tender Additional Instructions: Specialist:Usted tiene suki condicin mdica que requiere que omkar a un especialista dentro de los prximos 1-2 villarreal.POR FAVOR,CON BENSON SEGUIMIENTO DE PRIMARIA PHSICIAN refferal. SI USTED NO TIENE UN MDICO GENERAL Y / O USTED NO PUEDE PAGAR mu a un mdico,los siguientes bourne RECURSOS sido suministrado a usted. ES BENSON RESPONSABILIDAD PARA SER VISTOS POR EL ESPECIALISTA: IVA DAUGHERTY MD Jul 27, 2016 08:29
[2016-07-27 08:31] VITALS: BP 155/76; PULSE 76; RESP 21
== END 2016-07-27 08:45 | disposition home or self-care (01) ==
LOC: E/R 04:25
DX: R07.9 Chest pain, unspecified (principal); R10.13 Epigastric pain; I10 Essential (primary) hypertension; E11.9 Type 2 diabetes mellitus without complications; Z79.4 Long term (current) use of insulin; Z79.82 Long term (current) use of aspirin; Z79.84 Long term (current) use of oral hypoglycemic drugs
CPT/HCPCS: 36415; 71010; 80053; 81003; 83690; 84484; 85025; 93005

== ENCOUNTER 2016-11-15 08:42 | Emergency (ER) | payer OTHER, MEDICAID ==
[~2016-11-15] VITALS: Ht 162.6 cm; Wt 76.0 kg
[~2016-11-15 08:42] MED LIST changes: -CHOL20003 PO; +CHOL200073 PO; +TRAM50TA2 PO
[2016-11-15 08:45] VITALS: Ht 162.6 cm; Wt 76.0 kg
--- NOTE | 2016-11-15 09:29 | ERD ---
ER Documentation Chief Complaint Date/Time DATE: 11/15/16 TIME: 09:25 Chief Complaint DIZZINESS , FEELS MOUTH DRY , SOB , ANXIETY X 3 DAYS HPI This is a 81-year-old female who presents with her family member who is interpreting. The patient has multiple complaints over several months. The daughter describes that the patient has been at least 4 different emergency rooms for the symptoms that include generalized malaise, anxiety, occasional shortness of breath and dry mouth. Her main complaint today is dry mouth. The patient is seen her primary care physician approximately 1 month ago for these symptoms. She denies any chest pain no exertional symptoms no headache or vision changes. She states compliance with her medication regimen. No over-the -counter cold or cough medications. ROS All systems reviewed and are negative except as per history of present illness. Medications Home Meds Reported Medications Memantine* (Namenda*) 10 Mg Tablet, 10 MG PO DAILY, #30 TAB 07/20/16 Losartan Potassium* (Losartan Potassium*) 25 Mg Tablet, 12.5 MG PO DAILY, TAB 07/20/16 Aspirin* (Aspirin* EC) 81 Mg Tablet.dr, 81 MG PO DAILY, TAB 07/20/16 Pantoprazole* (Pantoprazole*) 40 Mg Tablet.dr, 40 MG PO AC BREAKFAST, TAB 11/30/15 Insulin Glargine* (Lantus*) 100 Unit/Ml Soln, 35 UNIT SC QHS, #1 VIAL 10/12/15 Atorvastatin* (Atorvastatin*) 40 Mg Tablet, 40 MG PO QHS, #30 TAB 10/12/15 Cholecalciferol (Vitamin D3) (VITAMIN D-3) 2,000 Unit Capsule, 2000 UNIT PO DAILY 05/20/14 Metformin* (Glucophage*) 1,000 Mg Tablet, 1000 MG PO BID WITH MEALS, TAB 03/06/14 Discontinued Scripts Tramadol HCl (Tramadol HCl) 50 Mg Tablet, 50 MG PO Q4 Y for PAIN, #10 TAB Prov:IVA ADUGHERTY MD 07/27/16 Docusate Sodium* (Colace*) 100 Mg Capsule, 100 MG PO TID, #30 CAP Prov:IVA DAUGHERTY MD 07/25/16 Ondansetron (Ondansetron Odt) 4 Mg Tab.rapdis, 4 MG PO Q6H Y for NAUSEA AND/OR VOMITING, #30 TAB Prov:IVA DAUGHERTY MD 07/25/16 Hydrocodone/Acetaminophen ([place] 5-325 Tablet) 1 Each Tablet, 1 TAB PO Q6H Y for PAIN, #7 TAB Prov:IAV DAUGHERTY MD 07/25/16 Allergies Allergies: Coded Allergies: No Known Allergies (Verified Allergy, Unknown, 11/15/16) PMhx/Soc History of Surgery: Yes (cholecystectomy (40 yrs ago)) Anesthesia Reaction: No Hx Neurological Disorder: Yes (headaches ) Hx Respiratory Disorders: No Hx Cardiac Disorders: Yes (HTN, dyslipidemia ) Hx Psychiatric Problems: No Hx Miscellaneous Medical Probl: Yes (DM ) Hx Alcohol Use: No Hx Substance Use: No Hx Tobacco Use: No Smoking Status: Never smoker FmHx Family History: No diabetes Physical Exam Vitals Vital Signs Date Time Temp Pulse Resp B/P Pulse Ox O2 Delivery O2 Flow Rate FiO2 11/15/16 08:45 98.1 98 18 199/93 97 Physical Exam General: Well developed, well nourished, no acute distress Head: Normocephalic, atraumatic. Eyes: Pupils equally reactive, EOM intact ENT: Moist mucous membranes Neck: Supple, no lymphadenopathy Respiratory: Lungs clear bilaterally, no distress Cardiovascular: RRR, no murmurs, rubs, or gallops Abdominal: Soft, non-tender, non-distended, no peritoneal signs : Deferred MSK: No edema, no unilateral swelling, 5/5 strength Neurologic: Alert and oriented, moving all extremities, normal speech, no focal weakness, no cerebellar signs Skin: No rash Psych: Anxious mood Result Diagram: 11/15/1690511/15/16 0906 Results 24 hrs Laboratory Tests Test 11/15/16 09:06 White Blood Count 10.410^3/ul Red Blood Count 4.0010^6/ul Hemoglobin 11.0g/dl Hematocrit 33.6% Mean Corpuscular Volume 84.0fl Mean Corpuscular Hemoglobin 27.5pg Mean Corpuscular Hemoglobin Concent 32.7g/dl Red Cell Distribution Width 15.3% Platelet Count 98760^3/UL Mean Platelet Volume 10.0fl Neutrophils % 72.4% Lymphocytes % 18.4% Monocytes % 6.8% Eosinophils % 1.3% Basophils % 0.5% Nucleated Red Blood Cells % 0.0/100WBC Neutrophils # 7.510^3/ul Lymphocytes # 1.910^3/ul Monocytes # 0.710^3/ul Eosinophils # 0.110^3/ul Basophils # 0.110^3/ul Nucleated Red Blood Cells # 0.010^3/ul Sodium Level 142mmol/L Potassium Level 4.9mmol/L Chloride Level 93mmol/L Carbon Dioxide Level 31mmol/L Anion Gap 23 Blood Urea Nitrogen 18mg/dl Creatinine 0.85mg/dl Glucose Level 286mg/dl Calcium Level 10.0mg/dl Troponin I < 0.012ng/ml Free Thyroxine Index 4.01ug/ml Thyroxine (T4) 12.1ug/dl Triiodothyronine (T3) Uptake 33.1% Procedures/MDM EKG, MONITORS, & DIAGNOSTIC IMAGING: EKG: I reviewed and interpreted a 12-lead EKG. Rhythm: Normal sinus rhythm Ectopy: None Intervals: No abnormalities ST segments: No elevations or depressions T waves: No contiguous inversions LAB INTERPRETATION: No acute process is noted on laboratory testing MEDICAL DECISION MAKING: This patient has a multitude of complaints that center around dry mouth today. Reviewing her medications she does take several medications that could be contributing to this most predominantly as her meclizine. She does not exhibit any clinical signs or symptoms concerning for anticholinergic syndrome. Additionally, she appears very anxious. She does have some dementia and I believe this constellation of symptoms could represent anxiety versus worsening dementia. The patient has had multiple ER evaluations over the last several months that have not revealed any significant abnormalities. I discussed that repeat blood work would be reasonable however unlikely to reveal any acute process. The family would like to proceed with laboratory testing. I will add on a thyroid. On a broader scope the patient is to follow-up with her primary care physician and have review of her medications for risk of polypharmacy and possibly have outpatient psychiatric evaluation for further assistance of the patient and the patient's family. I informed this to the patient's family who agrees. In my opinion, this time the patient does not have evidence of an acute organic medical issue. No evidence of emergent medical condition. ER COURSE: The patient continues to be asymptomatic and resting comfortably. The patient can be safely discharged. No significant laboratory abnormalities. I kept the patient and/or family informed of laboratory and diagnostic imaging results throughout the emergency room course. DISPOSITION PLAN: We discussed follow up with the patient's primary care doctor within 24 to 48 hours as needed. We also discussed return to the emergency room for worsening symptoms or worsening condition. Outpatient referral: [None required] Discharge Medications: Discontinue and hold meclizine Departure Diagnosis: Primary Impression: Dry mouth Additional Impression: Anxiety Condition: Good ARIANNE NAYLOR MD Nov 15, 2016 09:29
[2016-11-15 09:44] LABS: BASOPHIL # 0.1 10^3/ul (0.0-0.1); BASOPHILS % 0.5 % (0.0-2.0); EOSINOPHILS # 0.1 10^3/ul (0.0-0.5); EOSINOPHILS % 1.3 % (0.0-7.0); HEMATOCRIT 33.6 % (37.0-47.0); LYMPHOCYTES # 1.9 10^3/ul (0.8-2.9); LYMPHOCYTES % 18.4 % (15.0-51.0); MEAN CORPUSCULAR HEMOGLOBIN 27.5 pg (29.0-33.0); MEAN CORPUSCULAR HGB CONC 32.7 g/dl (32.0-37.0); MONOCYTE # 0.7 10^3/ul (0.3-0.9); MONOCYTES % 6.8 % (0.0-11.0); NEUTROPHIL # 7.5 10^3/ul (1.6-7.5); NEUTROPHILS % 72.4 % (39.0-77.0); PLATELET COUNT 357 10^3/UL (140-415); RED CELL DISTRIBUTION WIDTH 15.3 % (11.5-14.5); WHITE BLOOD COUNT 10.4 10^3/ul (4.8-10.8)
[2016-11-15 10:13] LABS: ANION GAP 23 (8-16); BLOOD UREA NITROGEN 18 mg/dl (7-20); CARBON DIOXIDE 31 mmol/L (21-31); CHLORIDE 93 mmol/L (97-110); CREATININE 0.85 mg/dl (0.44-1.00); GLUCOSE 286 mg/dl (70-220); POTASSIUM 4.9 mmol/L (3.5-5.1); SODIUM 142 mmol/L (135-144)
[2016-11-15 10:27] LABS: TROPONIN-I < 0.012 ng/ml (0.00-0.12)
[2016-11-15 10:31] LABS: T3 UPTAKE 33.1 % (23.5-40.5)
== END 2016-11-15 11:40 | disposition home or self-care (01) ==
LOC: E/R 08:42
DX: R68.2 Dry mouth, unspecified (principal); F41.9 Anxiety disorder, unspecified; I10 Essential (primary) hypertension; E11.9 Type 2 diabetes mellitus without complications; Z79.4 Long term (current) use of insulin; Z79.82 Long term (current) use of aspirin; Z79.84 Long term (current) use of oral hypoglycemic drugs
CPT/HCPCS: 36415; 80048; 84436; 84479; 84484; 85025

== ENCOUNTER 2016-12-15 05:47 | Emergency (ER) | payer OTHER, MEDICAID ==
[~2016-12-15] VITALS: Ht 157.5 cm; Wt 75.0 kg
[~2016-12-15 05:47] MED LIST changes: +AMLO-145 PO; +AMLO2.5T78 PO; +ASPI81TA3 PO; +CETI-240 PO; +CHOL400C PO; +CIPR-173 PO; +DICY10CA60 PO; +DOCU50CA4; +ERGO500014 PO; +FAMO-96 PO; +FAMO20TA18 PO; +FERR-49; +GLIP2.5T3 PO; +GLIP5TAB13; +GLIP5TAB13 PO; +HYDR12.53; +HYDR12.58 PO; +INSU100C5 SQ; +KEN25O; +LISI-313 PO; +LOSA100T47; +LOSA50TA6 PO; +MELO-109; +METF500T4; +OMEP20CA16 PO; +ONDA4TAB8 PO; +PHEN16.228; +RANI150T5 PO; +SIMV40TA3; +SIMV40TA3 PO; +SITA1TBM4 PO; +TRAM-40 PO; +TYL500 PO; +[UNRECOGNIZED DRUG - REMARK]
[2016-12-15 06:29] VITALS: Ht 157.5 cm; Wt 75.0 kg
[2016-12-15] MEDS ORDERED: ASPIRIN 81 MG TAB PO STA (06:40)
[2016-12-15] MEDS ORDERED: SOD CHLORIDE 0.9% 1,000 ML IV STA (06:50)
[2016-12-15 07:13] LABS: BASOPHIL # 0.1 10^3/ul (0.0-0.1); BASOPHILS % 0.5 % (0.0-2.0); EOSINOPHILS # 0.2 10^3/ul (0.0-0.5); EOSINOPHILS % 2.2 % (0.0-7.0); HEMATOCRIT 32.5 % (37.0-47.0); HEMOGLOBIN 10.8 g/dl (12.0-16.0); LYMPHOCYTES # 2.6 10^3/ul (0.8-2.9); LYMPHOCYTES % 25.6 % (15.0-51.0); MEAN CORPUSCULAR HEMOGLOBIN 27.2 pg (29.0-33.0); MEAN CORPUSCULAR HGB CONC 33.2 g/dl (32.0-37.0); MEAN CORPUSCULAR VOLUME 81.9 fl (82.0-101.0); MEAN PLATELET VOLUME 10.3 fl (7.4-10.4); MONOCYTE # 0.7 10^3/ul (0.3-0.9); MONOCYTES % 6.5 % (0.0-11.0); NEUTROPHILS % 64.9 % (39.0-77.0); PLATELET COUNT 339 10^3/UL (140-415); RED BLOOD COUNT 3.97 10^6/ul (4.20-5.40); RED CELL DISTRIBUTION WIDTH 15.9 % (11.5-14.5); WHITE BLOOD COUNT 10.2 10^3/ul (4.8-10.8)
--- NOTE | 2016-12-15 07:20 | RADRPT ---
PROCEDURE: XR Chest. CLINICAL INDICATION: Chest pain. TECHNIQUE: Single frontal view. COMPARISON: 07/27/2016. FINDINGS: The lungs are clear. The heart size is normal. There is calcification in the aorta consistent with atherosclerosis. There is no pleural effusion. There is no pneumothorax. IMPRESSION: 1. Atherosclerosis. 2. Otherwise normal chest x-ray. 3. No change from 07/27/2016. RPTAT: QQ .Oscar Sommers MD, MD Date Time Electronically viewed and signed by .Oscar Sommers MD, MD on 12/15/2016 07:19 .R/
[2016-12-15 07:32] LABS: ANION GAP 23 (8-16); BLOOD UREA NITROGEN 11 mg/dl (7-20); CALCIUM 9.7 mg/dl (8.4-10.2); CARBON DIOXIDE 28 mmol/L (21-31); CHLORIDE 95 mmol/L (97-110); CREATININE 0.93 mg/dl (0.44-1.00); GLUCOSE 196 mg/dl (70-220); POTASSIUM 4.5 mmol/L (3.5-5.1); SODIUM 141 mmol/L (135-144)
[2016-12-15 07:36] LABS: INR 0.95; PROTIME 12.7 Sec (12.2-14.2)
[2016-12-15 07:37] LABS: PARTIAL THROMBOPLASTIN TIME 28.6 Sec (25.0-35.0)
[2016-12-15 07:46] LABS: TROPONIN-I < 0.012 ng/ml (0.00-0.12)
[2016-12-15 08:47] LABS: ADD UMIC NO; UR ASCORBIC ACID NEGATIVE (NEGATIVE); UR BILIRUBIN (Dip) NEGATIVE (NEGATIVE); UR BLOOD (Dip) NEGATIVE (NEGATIVE); UR CLARITY CLEAR (CLEAR); UR COLOR COLORLESS (YELLOW); UR GLUCOSE (Dip) 3+ mg/dL (NEGATIVE); UR KETONES (Dip) NEGATIVE (NEGATIVE); UR LEUKOCYTE ESTERASE (Dip) NEGATIVE Leu/ul (NEGATIVE); UR NITRITE (Dip) NEGATIVE (NEGATIVE); UR SPECIFIC GRAVITY (Dip) 1.005 (1.003-1.030); UR TOTAL PROTEIN (Dip) NEGATIVE (NEGATIVE); UR UROBILINOGEN (Dip) NEGATIVE (NEGATIVE)
[2016-12-15] MEDS ORDERED: morphine 2 MG INJ IV ONE (09:00)
--- NOTE | 2016-12-15 09:04 | ERD ---
ER Documentation Chief Complaint Date/Time DATE: 12/15/16 TIME: 09:04 Chief Complaint chest pain x 8 days, generalized malaise HPI 81-year-old female with a history of hypertension, diabetes, and dementia presenting to the ER complaining of dry mouth, sore throat, and palpitations. She denies any chest pain or shortness of breath. She states she urinates frequently but has no dysuria. No headache, focal weakness or numbness, fever, chills. Per family, she has had the dry mouth for several months. She was seen here previously for the same complaint. She was referred to a specialist, who diagnosed her with oral candidiasis and put her on medications for this. She is still on these medications. But she continues to complain of dry mouth. ROS All systems reviewed and are negative except as per history of present illness. Medications Home Meds Reported Medications Memantine* (Namenda*) 10 Mg Tablet, 10 MG PO DAILY, #30 TAB 07/20/16 Losartan Potassium* (Losartan Potassium*) 25 Mg Tablet, 12.5 MG PO DAILY, TAB 07/20/16 Aspirin* (Aspirin* EC) 81 Mg Tablet.dr, 81 MG PO DAILY, TAB 07/20/16 Pantoprazole* (Pantoprazole*) 40 Mg Tablet.dr, 40 MG PO AC BREAKFAST, TAB 11/30/15 Insulin Glargine* (Lantus*) 100 Unit/Ml Soln, 35 UNIT SC QHS, #1 VIAL 10/12/15 Atorvastatin* (Atorvastatin*) 40 Mg Tablet, 40 MG PO QHS, #30 TAB 10/12/15 Cholecalciferol (Vitamin D3) (VITAMIN D-3) 2,000 Unit Capsule, 2000 UNIT PO DAILY 05/20/14 Metformin* (Glucophage*) 1,000 Mg Tablet, 1000 MG PO BID WITH MEALS, TAB 03/06/14 Allergies Allergies: Coded Allergies: No Known Allergies (Verified Allergy, Unknown, 11/15/16) PMhx/Soc History of Surgery: Yes (Cholecystectomy) Anesthesia Reaction: No Hx Neurological Disorder: Yes (Dementia) Hx Respiratory Disorders: No Hx Cardiac Disorders: Yes (Hypertension) Hx Psychiatric Problems: No Hx Miscellaneous Medical Probl: Yes (Diabetes) Hx Alcohol Use: No Hx Substance Use: No Hx Tobacco Use: No Smoking Status: Never smoker FmHx Family History: No coronary disease Physical Exam Vitals Vital Signs Date Time Temp Pulse Resp B/P Pulse Ox O2 Delivery O2 Flow Rate FiO2 12/15/16 09:30 98.3 77 20 170/80 96 Room Air 12/15/16 08:00 98.3 78 20 175/80 98 Room Air 12/15/16 07:00 98.3 77 20 180/77 98 Room Air 12/15/16 06:29 97.8 89 20 200/88 99 Physical Exam Const: No apparent distress, nontoxic Head: Atraumatic Eyes: Normal Conjunctiva ENT: Dry oral mucosa, tongue normal otherwise, posterior oropharynx normal, no white plaques Neck: Full range of motion..~ No meningismus. Resp: Clear to auscultation bilaterally Cardio: Regular rate and rhythm, no murmurs Abd: Soft, non tender, non distended. Normal bowel sounds Skin: No petechiae or rashes Back: No midline or flank tenderness Ext: No cyanosis, or edema Neur: Awake and alert, no facial asymmetry, strength and sensations intact in all 4 extremities Psych: Normal Mood and Affect Result Diagram: 12/15/1665712/15/1658 Results 24 hrs Laboratory Tests Test 12/15/16 06:50 12/15/16 06:58 12/15/16 07:28 12/15/16 08:29 Hemoglobin A1c 10.7% White Blood Count 10.210^3/ul Red Blood Count 3.9710^6/ul Hemoglobin 10.8g/dl Hematocrit 32.5% Mean Corpuscular Volume 81.9fl Mean Corpuscular Hemoglobin 27.2pg Mean Corpuscular Hemoglobin Concent 33.2g/dl Red Cell Distribution Width 15.9% Platelet Count 16924^3/UL Mean Platelet Volume 10.3fl Neutrophils % 64.9% Lymphocytes % 25.6% Monocytes % 6.5% Eosinophils % 2.2% Basophils % 0.5% Nucleated Red Blood Cells % 0.0/100WBC Neutrophils # (Manual) 710^3/ul Lymphocytes # 2.610^3/ul Monocytes # 0.710^3/ul Eosinophils # 0.210^3/ul Basophils # 0.110^3/ul Nucleated Red Blood Cells # 0.010^3/ul Prothrombin Time 12.7Sec Prothrombin Time Ratio 1.0 INR International Normalized Ratio 0.95 Activated Partial Thromboplast Time 28.6Sec Sodium Level 141mmol/L Potassium Level 4.5mmol/L Chloride Level 95mmol/L Carbon Dioxide Level 28mmol/L Anion Gap 23 Blood Urea Nitrogen 11mg/dl Creatinine 0.93mg/dl Glucose Level 196mg/dl Calcium Level 9.7mg/dl Troponin I < 0.012ng/ml Bedside Glucose 175mg/dL Urine Color COLORLESS Urine Clarity CLEAR Urine pH 9.0 Urine Specific [place] 1.005 Urine Ketones NEGATIVEmg/dL Urine Nitrite NEGATIVEmg/dL Urine Bilirubin NEGATIVEmg/dL Urine Urobilinogen NEGATIVEmg/dL Urine Leukocyte Esterase NEGATIVELeu/ul Urine Hemoglobin NEGATIVEmg/dL Urine Glucose 3+mg/dL Urine Total Protein NEGATIVEmg/dl Current Medications Medications (Trade) Dose Ordered Sig/Susan Route PRN Reason Start Time Stop Time Status Last Admin Dose Admin Aspirin 162 mg 162 mg ONCE STAT PO 12/15/16 06:40 12/15/16 06:42 DC 12/15/16 07:43 Sodium Chloride (NS) 1,000 ml @ 1,000 mls/hr Q1H STAT IV 12/15/16 06:50 12/15/16 07:49 DC 12/15/16 07:44 Morphine Sulfate (morphine) 2 mg ONCE ONCE IV 12/15/16 09:00 12/15/16 09:01 DC 12/15/16 08:38 Procedures/MDM EMERGENT LABS AND DIAGNOSTIC STUDIES: Lab Results above were reviewed and interpreted by me. CBC: no anemia or evidence of infection BMP: No evidence of electrolyte abnormality, renal failure, hypoglycemia or significant hyperglycemia Troponin within normal limits UA: no evidence of infection 12-lead EKG was interpreted by Clifford Pedro MD: Normal Sinus Rhythm with ventricular rate of 88 beats per minute Normal axis Normal intervals No acute ST or T wave changes suggestive of acute ischemia or STEMI. Radiology Results as interpreted by Radiology below were reviewed by Alex Pedro MD: Chest x-ray did not show any acute abnormalities Initial Nursing notes reviewed. Previous Medical Records requested via the Electronic Health Record. EMERGENCY DEPARTMENT COURSE / MEDICAL DECISION MAKING: Patient is presenting with symptoms that appear to be chronic. Her vitals are stable upon arrival other than elevated blood pressure. However I do not suspect hypertensive emergency. I have a low suspicion for acute coronary syndrome, arrhythmia, aortic dissection, pulmonary embolism, stroke, or serious bacterial infection. Her initial labs including troponin were normal. She is on meclizine, which can be contributing to her dry mouth. But I advised she return to her primary care doctor and discuss her symptoms. At this time, I do not think she has a medical emergency. I believe the patient is stable for discharge with continued outpatient follow- up with Dr. Scanlon. Return precautions were discussed. Patient's blood pressure was elevated (>120/80) but appears stable without evidence of hypertensive emergency or urgency. The patient was counseled about the risks of hypertension and urged to pursue outpatient monitoring and therapy within a week with their primary care physician. Departure Diagnosis: Primary Impression: Dry mouth, unspecified Additional Impression: Palpitations Condition: Stable Patient Instructions: Palpitations Additional Instructions: Gely pruebas de hoy robert normales. Creo que garvey boca seca puede ser debido a los medicamentos. Hable con garvey mdico sobre esto. Tambin trate de chupar dulces sin azcar noris todo el da. Regrese por cualquier empeoramiento de los s ntomas. JAY PEDRO MD Dec 15, 2016 09:04
[2016-12-15 09:30] VITALS: BP 170/80; PULSE 77; RESP 20; TEMP 98.3
== END 2016-12-15 09:45 | disposition home or self-care (01) ==
LOC: E/R 05:47
DX: R68.2 Dry mouth, unspecified (principal); R00.2 Palpitations; I10 Essential (primary) hypertension; E11.9 Type 2 diabetes mellitus without complications; Z79.4 Long term (current) use of insulin; Z79.82 Long term (current) use of aspirin; Z79.84 Long term (current) use of oral hypoglycemic drugs
CPT/HCPCS: 36415; 71010; 80048; 81003; 82962; 83036; 84484; 85025; 85610; 85730; 93005; 96374; 99285; J2270; J7030

== ENCOUNTER 2016-12-30 08:07 | Emergency (ER) | payer OTHER, MEDICAID ==
[~2016-12-30] VITALS: Ht 152.4 cm; Wt 74.5 kg
[~2016-12-30 08:07] MED LIST changes: -AMLO-145 PO; -AMLO2.5T78 PO; -ASPI81TA3 PO; -CETI-240 PO; -CHOL400C PO; -CIPR-173 PO; -DICY10CA60 PO; -DOCU-144 PO; -DOCU50CA4; -ERGO500014 PO; -FAMO-96 PO; -FAMO20TA18 PO; -FERR-49; -GLIP2.5T3 PO; -GLIP5TAB13; -GLIP5TAB13 PO; -HYDR-906 PO; -HYDR12.53; -HYDR12.58 PO; -INSU100C5 SQ; -KEN25O; -LISI-313 PO; -LOSA100T47; -LOSA50TA6 PO; -MELO-109; -METF500T4; -OMEP20CA16 PO; -ONDA4TAB14 PO; -ONDA4TAB8 PO; -PHEN16.228; -RANI150T5 PO; -SIMV40TA3; -SIMV40TA3 PO; -SITA1TBM4 PO; -TRAM-40 PO; -TRAM50TA2 PO; -TYL500 PO; -[UNRECOGNIZED DRUG - REMARK]
[2016-12-30 08:09] VITALS: Ht 152.4 cm; Wt 74.5 kg
[2016-12-30] MEDS ORDERED: LIDOCAINE/MYLANTA 40 ML BTL PO STA (09:05)
[2016-12-30] MEDS ORDERED: FAMOTIDINE 20 MG INJ IV STA (09:05)
[2016-12-30 09:51] LABS: BASOPHILS % 0.4 % (0.0-2.0); EOSINOPHILS # 0.2 10^3/ul (0.0-0.5); EOSINOPHILS % 1.7 % (0.0-7.0); HEMOGLOBIN 10.7 g/dl (12.0-16.0); LYMPHOCYTES # 1.8 10^3/ul (0.8-2.9); MEAN CORPUSCULAR HGB CONC 32.4 g/dl (32.0-37.0); MEAN CORPUSCULAR VOLUME 83.1 fl (82.0-101.0); MEAN PLATELET VOLUME 10.5 fl (7.4-10.4); MONOCYTE # 0.7 10^3/ul (0.3-0.9); MONOCYTES % 7.2 % (0.0-11.0); NEUTROPHILS % 71.5 % (39.0-77.0); PLATELET COUNT 300 10^3/UL (140-415); RED BLOOD COUNT 3.97 10^6/ul (4.20-5.40); RED CELL DISTRIBUTION WIDTH 15.9 % (11.5-14.5); WHITE BLOOD COUNT 9.7 10^3/ul (4.8-10.8)
--- NOTE | 2016-12-30 10:25 | RADRPT ---
PROCEDURE: CT Abdomen and pelvis without contrast. CLINICAL INDICATION: Abdominal pain TECHNIQUE: CT scan of the abdomen and pelvis without contrast was performed on a multidetector hig h-resolution CT scan. . Coronal and sagittal reformatted images were obtained from the axial [facility] e images. Standard CT scan of the abdomen pelvis without contrast protocols were performed. The total exam CTDI equals 15.27 mGy and the total exam DLP equals 816.94 mGy-cm. One or more of the following dose reduction techniques were used: - Automated exposure control. - Adjustment of the mA and/or kV according to patient size. Use of iterative reconstruction technique. COMPARISON: CT abdomen pelvis 07/25/2016 FINDINGS: Again noted and are less conspicuous. Tiny 2 mm basilar nodular densities. 12-month follow-up is s uggested if there are risk factors for lung cancer. Mild chronic basilar interstitial lung disease and left basilar pleural thickening unchanged. Again noted is a 2 cm duodenal diverticulum involving the second portion of the duodenum. The remai nder of the small bowel is unremarkable. The stomach and appendix are unremarkable. Again noted is diverticulosis of the descending and proximal sigmoid colon but no CT evidence of diverticulitis. Remainder of the colon is unremarkable. Negative for intra-abdominal free air, free fluid, abscesses or lymphadenopathy. The kidneys are normal in size without calcified renal calculi, hydronephrosis or intra renal masses bilaterally. The urinary bladder is unremarkable. 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 No adnexal masses. The liver spleen pancreas and adrenal glands are unremarkable. The gallbladder is not visualized li aurora surgically absent. The abdominal pelvic umanzor are unremarkable. There are degenerative changes of the lower thoracic a nd lumbar spine without acute osseous findings are osteoblastic/osteolytic lesions. IMPRESSION: 1. No significant interval change. 2. 2 cm duodenal diverticulum. Colonic diverticulosis. No evidence of diverticulitis or enteritis. 3. Less conspicuous scattered bibasilar 2 mm nodular densities. 12-month follow-up is suggested if there are risk factors for lung cancer. 4. No evidence of calcified urinary calculi or obstructive uropathy. RPTAT:AAJJ B Gray, Physician Date Time Electronically viewed and signed by Aguila Gray Physician on 12/30/2016 10:25 BM/
[2016-12-30 10:35] LABS: ALANINE AMINOTRANSFERASE 26 IU/L (13-69); ALBUMIN 4.2 g/dl (3.3-4.9); ALBUMIN/GLOBULIN RATIO 1.31; ALKALINE PHOSPHATASE 145 IU/L (42-121); ANION GAP 16 (8-16); ASPARTATE AMINO TRANSFERASE 47 IU/L (15-46); BILIRUBIN,INDIRECT 0.6 mg/dl (0-1.1); BILIRUBIN,TOTAL 0.6 mg/dl (0.2-1.3); BLOOD UREA NITROGEN 10 mg/dl (7-20); CALCIUM 9.8 mg/dl (8.4-10.2); CARBON DIOXIDE 26 mmol/L (21-31); CHLORIDE 101 mmol/L (97-110); CREATININE 0.77 mg/dl (0.44-1.00); GLUCOSE 174 mg/dl (70-220); POTASSIUM 4.7 mmol/L (3.5-5.1); SODIUM 138 mmol/L (135-144); TOTAL PROTEIN 7.4 g/dl (6.1-8.1)
[2016-12-30 10:46] LABS: TROPONIN-I < 0.012 ng/ml (0.00-0.12)
[2016-12-30] MEDS ORDERED: PANT40TA3 PO (11:03)
--- NOTE | 2016-12-30 11:04 | ERD ---
ER Documentation Chief Complaint Date/Time DATE: 12/30/16 TIME: 11:04 Chief Complaint dry mouth, left side ap x 1 week, vomiting HPI Patient is a 81-year-old female with hypertension and diabetes who presents with abdominal pain. The patient has left upper quadrant abdominal pain. She has had 1 week of pain. The pain is constant. She has had no treatment as of yet. She has no fevers. She has had nausea and vomiting but no diarrhea. She complains of a dry mouth. She has called her primary doctor Dr. Scanlon but there was no appointment available. Upon review of old medical records the patient has multiple visits to the ER for various complaints and review of the emergency department information exchange system shows visits to 2 separate emergency departments. ROS All systems reviewed and are negative except as per history of present illness. Medications Home Meds Active Scripts Pantoprazole* (Protonix*) 40 Mg Tablet.dr, 40 MG PO DAILY, #20 TAB Prov:IVA DAUGHERTY MD 12/30/16 Reported Medications Memantine* (Namenda*) 10 Mg Tablet, 10 MG PO DAILY, #30 TAB 07/20/16 Losartan Potassium* (Losartan Potassium*) 25 Mg Tablet, 12.5 MG PO DAILY, TAB 07/20/16 Aspirin* (Aspirin* EC) 81 Mg Tablet.dr, 81 MG PO DAILY, TAB 07/20/16 Pantoprazole* (Pantoprazole*) 40 Mg Tablet.dr, 40 MG PO AC BREAKFAST, TAB 11/30/15 Insulin Glargine* (Lantus*) 100 Unit/Ml Soln, 35 UNIT SC QHS, #1 VIAL 10/12/15 Atorvastatin* (Atorvastatin*) 40 Mg Tablet, 40 MG PO QHS, #30 TAB 10/12/15 Cholecalciferol (Vitamin D3) (VITAMIN D-3) 2,000 Unit Capsule, 2000 UNIT PO DAILY 05/20/14 Metformin* (Glucophage*) 1,000 Mg Tablet, 1000 MG PO BID WITH MEALS, TAB 03/06/14 Allergies Allergies: Coded Allergies: No Known Allergies (Verified Allergy, Unknown, 11/15/16) PMhx/Soc History of Surgery: Yes (Cholecystectomy) Anesthesia Reaction: No Hx Neurological Disorder: Yes (Dementia) Hx Respiratory Disorders: No Hx Cardiac Disorders: Yes (Hypertension) Hx Psychiatric Problems: No Hx Miscellaneous Medical Probl: Yes (Diabetes) Hx Alcohol Use: No Hx Substance Use: No Hx Tobacco Use: No Smoking Status: Never smoker FmHx Family History: No diabetes Physical Exam Vitals Vital Signs Date Time Temp Pulse Resp B/P Pulse Ox O2 Delivery O2 Flow Rate FiO2 12/30/16 08:09 98.1 88 18 186/78 99 Physical Exam Const: Mild distress secondary to pain Head: Atraumatic Eyes: Normal Conjunctiva ENT: Normal External Ears, Nose and Mouth. Neck: Full range of motion..~ No meningismus. Resp: Clear to auscultation bilaterally Cardio: Regular rate and rhythm, no murmurs Abd: Soft, Left upper quadrant abdominal pain without rebound or guarding Skin: No petechiae or rashes Back: No midline or flank tenderness Ext: No cyanosis, or edema Neur: Awake and alert Psych: Normal Mood and Affect Result Diagram: 12/30/1692912/30/16929 Results 24 hrs Laboratory Tests Test 12/30/16 09:30 White Blood Count 9.710^3/ul Red Blood Count 3.9710^6/ul Hemoglobin 10.7g/dl Hematocrit 33.0% Mean Corpuscular Volume 83.1fl Mean Corpuscular Hemoglobin 27.0pg Mean Corpuscular Hemoglobin Concent 32.4g/dl Red Cell Distribution Width 15.9% Platelet Count 04007^3/UL Mean Platelet Volume 10.5fl Neutrophils % 71.5% Lymphocytes % 19.0% Monocytes % 7.2% Eosinophils % 1.7% Basophils % 0.4% Nucleated Red Blood Cells % 0.0/100WBC Neutrophils # (Manual) 6.910^3/ul Lymphocytes # 1.810^3/ul Monocytes # 0.710^3/ul Eosinophils # 0.210^3/ul Basophils # 0.010^3/ul Nucleated Red Blood Cells # 0.010^3/ul Sodium Level 138mmol/L Potassium Level 4.7mmol/L Chloride Level 101mmol/L Carbon Dioxide Level 26mmol/L Anion Gap 16 Blood Urea Nitrogen 10mg/dl Creatinine 0.77mg/dl Glucose Level 174mg/dl Calcium Level 9.8mg/dl Total Bilirubin 0.6mg/dl Direct Bilirubin 0.00mg/dl Indirect Bilirubin 0.6mg/dl Aspartate Amino Transf (AST/SGOT) 47IU/L Alanine Aminotransferase (ALT/SGPT) 26IU/L Alkaline Phosphatase 145IU/L Troponin I < 0.012ng/ml Total Protein 7.4g/dl Albumin 4.2g/dl Globulin 3.20g/dl Albumin/Globulin Ratio 1.31 Lipase 123U/L Current Medications Medications (Trade) Dose Ordered Sig/Susan Route PRN Reason Start Time Stop Time Status Last Admin Dose Admin Famotidine (Pepcid Iv) 20 mg ONCE STAT IV 12/30/16 09:05 12/30/16 09:06 DC 12/30/16 09:05 Miscellaneous Medication (Gi Cocktail (2)) 40 ml ONCE STAT PO 12/30/16 09:05 12/30/16 09:06 DC 12/30/16 09:05 Procedures/MDM EKG read by me: Rate/Rhythm: Regular rate and rhythm at a rate of 66 Intervals: Normal Impression: No evidence of ischemia or arrhythmia CT abdomen pelvis shows no acute surgical process per radiology. Patient is a 81-year-old female with hypertension and diabetes who presents with abdominal pain and dry mouth. Laboratory studies are basically normal. CT scan shows no sign of serious etiology or surgical pathology. At this point I doubt appendicitis, cholecystitis, pancreatitis, or bowel obstruction. I doubt acute coronary syndrome. The patient will be discharged home but will need close follow-up with her primary doctor within 24-48 hours for reevaluation. She can return sooner for any worsening symptoms. Departure Diagnosis: Primary Impression: Dry mouth Additional Impression: Abdominal pain Abdominal location: left upper quadrant Qualified Code: R10.12 - Left upper quadrant pain Condition: Fair Patient Instructions: Abdominal Pain Additional Instructions: Visite a guru holman para un EXAMEN.Regrese a estas instalaciones si no se mejora felicity esperbamos o felicity le dijimos. IVA DAUGHERTY MD Dec 30, 2016 11:04
== END 2016-12-30 12:55 | disposition home or self-care (01) ==
LOC: E/R 08:07
DX: R68.2 Dry mouth, unspecified (principal); R10.12 Left upper quadrant pain; E11.9 Type 2 diabetes mellitus without complications; I10 Essential (primary) hypertension; Z79.4 Long term (current) use of insulin; Z79.82 Long term (current) use of aspirin; Z79.84 Long term (current) use of oral hypoglycemic drugs
CPT/HCPCS: 36415; 74176; 80053; 83690; 84484; 85025; 93005; 96374

== ENCOUNTER 2017-02-01 03:51 | Emergency (ER) | payer OTHER, MEDICAID ==
[~2017-02-01] VITALS: Ht 147.3 cm; Wt 75.5 kg
[~2017-02-01 03:51] MED LIST changes: +PANT40TA3 PO
[2017-02-01 03:56] VITALS: Ht 147.3 cm; Wt 75.5 kg
[2017-02-01] MEDS ORDERED: SOD CHLORIDE 0.9% 1,000 ML IV STA (04:09)
[2017-02-01] MEDS ORDERED: ONDANSETRON 4 MG INJ IV STA (04:09)
[2017-02-01] MEDS ORDERED: morphine 2 MG INJ IV STA (04:09)
[2017-02-01 04:34] LABS: BASOPHIL # 0.1 10^3/ul (0.0-0.1); BASOPHILS % 0.4 % (0.0-2.0); EOSINOPHILS # 0.2 10^3/ul (0.0-0.5); EOSINOPHILS % 1.7 % (0.0-7.0); HEMATOCRIT 33.3 % (37.0-47.0); HEMOGLOBIN 10.6 g/dl (12.0-16.0); LYMPHOCYTES # 2.1 10^3/ul (0.8-2.9); LYMPHOCYTES % 18.7 % (15.0-51.0); MEAN CORPUSCULAR HEMOGLOBIN 25.8 pg (29.0-33.0); MEAN CORPUSCULAR HGB CONC 31.8 g/dl (32.0-37.0); MEAN PLATELET VOLUME 9.7 fl (7.4-10.4); MONOCYTE # 0.7 10^3/ul (0.3-0.9); MONOCYTES % 6.3 % (0.0-11.0); NEUTROPHIL # 8.2 10^3/ul (1.6-7.5); NEUTROPHILS % 72.5 % (39.0-77.0); PLATELET COUNT 381 10^3/UL (140-415); RED BLOOD COUNT 4.11 10^6/ul (4.20-5.40); RED CELL DISTRIBUTION WIDTH 16.2 % (11.5-14.5); WHITE BLOOD COUNT 11.3 10^3/ul (4.8-10.8)
[2017-02-01 04:36] LABS: ADD UMIC NO; UR ASCORBIC ACID NEGATIVE (NEGATIVE); UR BILIRUBIN (Dip) NEGATIVE (NEGATIVE); UR BLOOD (Dip) NEGATIVE (NEGATIVE); UR CLARITY CLEAR (CLEAR); UR COLOR COLORLESS (YELLOW); UR GLUCOSE (Dip) 3+ mg/dL (NEGATIVE); UR KETONES (Dip) NEGATIVE (NEGATIVE); UR LEUKOCYTE ESTERASE (Dip) NEGATIVE Leu/ul (NEGATIVE); UR NITRITE (Dip) NEGATIVE (NEGATIVE); UR SPECIFIC GRAVITY (Dip) 1.009 (1.003-1.030); UR TOTAL PROTEIN (Dip) NEGATIVE (NEGATIVE); UR UROBILINOGEN (Dip) NEGATIVE (NEGATIVE)
[2017-02-01 04:53] LABS: ALANINE AMINOTRANSFERASE 41 IU/L (13-69); ALBUMIN 4.9 g/dl (3.3-4.9); ALBUMIN/GLOBULIN RATIO 1.32; ALKALINE PHOSPHATASE 229 IU/L (42-121); ANION GAP 16 (8-16); ASPARTATE AMINO TRANSFERASE 40 IU/L (15-46); BILIRUBIN,INDIRECT 0.8 mg/dl (0-1.1); BILIRUBIN,TOTAL 0.8 mg/dl (0.2-1.3); BLOOD UREA NITROGEN 20 mg/dl (7-20); CALCIUM 9.9 mg/dl (8.4-10.2); CARBON DIOXIDE 29 mmol/L (21-31); CHLORIDE 96 mmol/L (97-110); CREATININE 0.91 mg/dl (0.44-1.00); GLUCOSE 238 mg/dl (70-220); POTASSIUM 4.2 mmol/L (3.5-5.1); SODIUM 137 mmol/L (135-144); TOTAL PROTEIN 8.6 g/dl (6.1-8.1)
[2017-02-01] MEDS ORDERED: SOD CHLORIDE 0.9% 100 ML ONE (05:03)
[2017-02-01] MEDS ORDERED: IODIXANOL LOCM 100 ML BTL ONE (05:03)
[2017-02-01 05:04] LABS: TROPONIN-I < 0.012 ng/ml (0.00-0.12)
--- NOTE | 2017-02-01 06:08 | RADRPT ---
PROCEDURE: CT Abdomen and pelvis with contrast CLINICAL INDICATION: Generalized abdominal pain TECHNIQUE: Spiral CT images through the abdomen and pelvis without administration of oral and duri ng administration of 90 cc of Visipaque 320 contrast material. Multiplanar reconstructions. The to jeanette exam CTDI equals 17.55 mGy and the total exam DLP equals 1026.46 mGy-cm. One or more of the foll owing dose reduction techniques were used: automated exposure control, adjustment of the mA and/or k V according to patient size, or use of iterative reconstruction technique. COMPARISON: 12/30/2016 FINDINGS: Lower thorax: Slight dependent atalectasis of the lung bases is seen.. Tiny basilar lung nodules are again seen, none at greater than 6 mm. Aortic valve calcification. Liver: The liver is unremarkable in appearance. Biliary: The gallbladder is likely surgically absent.. No biliary ductal dilatation is seen. Spleen: The spleen is unremarkable in appearance Adrenal glands: Unremarkable in appearance. No focal nodule.. Genitourinary: No hydronephrosis or renal calculi.. Minimal renal pelvocaliectasis bilaterally. No u reter or bladder stones other than a tiny calcification seen in the urachal remnant of the urinary b ladder, incidental. Tiny renal cortical cysts. Pancreas: Unremarkable. No focal mass or inflammatory process. Gastrointestinal Tract: There is no evidence for bowel obstruction, free air, or abscess. The appen alireza is unremarkable in appearance. Tiny hiatal hernia. Duodenal diverticulum again seen. Tiny fat -containing umbilical hernia. Colonic diverticulosis without evidence of diverticulitis. Lymph nodes: No adenopathy is seen.. Peritoneal cavity: Unremarkable mesentery and peritoneum.. No mass, edema, or ascites. Reproductive Organs: Calcified periuterine vasculature. Unremarkable adnexa.. Vascular structures: Aortic and coronary artery calcification.. Musculoskeletal: There is mild degenerative change of the spine. Injection granulomas are seen in th e gluteal regions. IMPRESSION: No definite acute abnormality of the abdomen or pelvis. Multiple stable findings as above. Several tiny less than 6 mm bibasilar lung nodules. Follow-up imaging as only recommended if the patient is at high risk for lung cancer. RPTAT: HLBE Leona Luz, Physician Date Time Electronically viewed and signed by Leona Escobar, Physician on 02/01/2017 06:08 LE/
--- NOTE | 2017-02-01 07:24 | ERD ---
ER Documentation Chief Complaint Date/Time DATE: 02/01/17 TIME: 07:21 Chief Complaint abdominal pain x 1 week HPI Patient is a 81-year-old female who presents with gradual onset, constant, moderate, dull right upper quadrant pain for the last week. She denies vomiting. She denies fever. She denies radiation of pain. She denies cough. She reports being constipated. The patient's daughter reports that the patient has frequent pain complaints and has been to multiple ERs without relief. This the first time that she is complained of abdominal pain. The patient is status post cholecystectomy. Her primary doctor is Dr. Scanlon.The patient reports having a bitter taste in her mouth associated with the pain. She is already taking pantoprazole daily. The patient's daughter reports that she has had alternating constipation and diarrhea for several years. ROS All systems reviewed and are negative except as per history of present illness. Medications Home Meds Active Scripts Polyethylene Glycol* (Miralax*) 17 Gm Powd.pack, 17 GM PO DAILY, #3 PACKET Prov:NOLBERTO LUNDBERG MD 02/01/17 Acetaminophen* (Tylophen*) 500 Mg Capsule, 2 CAP PO Q8H Y for PAIN AND OR ELEVATED TEMP, #20 CAP Prov:NOLBERTO LUNDBERG MD 02/01/17 Pantoprazole* (Protonix*) 40 Mg Tablet., 40 MG PO DAILY, #20 TAB Prov:IVA DAUGHERTY MD 12/30/16 Reported Medications Memantine* (Namenda*) 10 Mg Tablet, 10 MG PO DAILY, #30 TAB 07/20/16 Losartan Potassium* (Losartan Potassium*) 25 Mg Tablet, 12.5 MG PO DAILY, TAB 07/20/16 Aspirin* (Aspirin* EC) 81 Mg Tablet.dr, 81 MG PO DAILY, TAB 07/20/16 Pantoprazole* (Pantoprazole*) 40 Mg Tablet., 40 MG PO AC BREAKFAST, TAB 11/30/15 Insulin Glargine* (Lantus*) 100 Unit/Ml Soln, 35 UNIT SC QHS, #1 VIAL 10/12/15 Atorvastatin* (Atorvastatin*) 40 Mg Tablet, 40 MG PO QHS, #30 TAB 10/12/15 Cholecalciferol (Vitamin D3) (VITAMIN D-3) 2,000 Unit Capsule, 2000 UNIT PO DAILY 05/20/14 Metformin* (Glucophage*) 1,000 Mg Tablet, 1000 MG PO BID WITH MEALS, TAB 03/06/14 Allergies Allergies: Coded Allergies: No Known Allergies (Verified Allergy, Unknown, 02/01/17) PMhx/Soc Past medical history: Diabetes mellitus, hypertension, gastritis Past surgical history: Cholecystectomy Social history: Denies tobacco, alcohol or illicit drug History of Surgery: Yes (Cholecystectomy) Anesthesia Reaction: No Hx Neurological Disorder: Yes (Dementia) Hx Respiratory Disorders: No Hx Cardiac Disorders: Yes (Hypertension) Hx Psychiatric Problems: No Hx Miscellaneous Medical Probl: Yes (Diabetes) Hx Alcohol Use: No Hx Substance Use: No Hx Tobacco Use: No Smoking Status: Never smoker FmHx Noncontributory Physical Exam Vitals Vital Signs Date Time Temp Pulse Resp B/P Pulse Ox O2 Delivery O2 Flow Rate FiO2 02/01/17 07:44 97.1 65 19 145/65 99 Room Air 02/01/17 03:56 98.4 90 20 186/84 96 Physical Exam Const: Alert, appears mildly uncomfortable Head: Atraumatic Eyes: Normal Conjunctiva, No pallor, no icterus ENT: Normal External Ears, Nose and Mouth. Mucous membranes moist Neck: Full range of motion..~ No meningismus. Resp: Clear to auscultation bilaterally, No wheezing, no rales Cardio: Regular rate and rhythm, no murmurs Abd: Soft, Mild right upper quadrant tenderness without guarding or rebound, Nondistended Skin: No petechiae or rashes Back: No midline or flank tenderness, No CVA tenderness Ext: No cyanosis, or edema Neur: Awake and alert, Cranial nerves II through XII intact bilaterally, strength and sensation full in 4 extremities. Psych: Normal Mood and Affect Result Diagram: 02/01/1741902/01/17419 Results 24 hrs Laboratory Tests Test 02/01/17 04:20 White Blood Count 11.310^3/ul Red Blood Count 4.1110^6/ul Hemoglobin 10.6g/dl Hematocrit 33.3% Mean Corpuscular Volume 81.0fl Mean Corpuscular Hemoglobin 25.8pg Mean Corpuscular Hemoglobin Concent 31.8g/dl Red Cell Distribution Width 16.2% Platelet Count 97910^3/UL Mean Platelet Volume 9.7fl Neutrophils % 72.5% Lymphocytes % 18.7% Monocytes % 6.3% Eosinophils % 1.7% Basophils % 0.4% Nucleated Red Blood Cells % 0.0/100WBC Neutrophils # 8.210^3/ul Lymphocytes # 2.110^3/ul Monocytes # 0.710^3/ul Eosinophils # 0.210^3/ul Basophils # 0.110^3/ul Nucleated Red Blood Cells # 0.010^3/ul Urine Color COLORLESS Urine Clarity CLEAR Urine pH 7.0 Urine Specific [place] 1.009 Urine Ketones NEGATIVEmg/dL Urine Nitrite NEGATIVEmg/dL Urine Bilirubin NEGATIVEmg/dL Urine Urobilinogen NEGATIVEmg/dL Urine Leukocyte Esterase NEGATIVELeu/ul Urine Hemoglobin NEGATIVEmg/dL Urine Glucose 3+mg/dL Urine Total Protein NEGATIVEmg/dl Sodium Level 137mmol/L Potassium Level 4.2mmol/L Chloride Level 96mmol/L Carbon Dioxide Level 29mmol/L Anion Gap 16 Blood Urea Nitrogen 20mg/dl Creatinine 0.91mg/dl Glucose Level 238mg/dl Calcium Level 9.9mg/dl Total Bilirubin 0.8mg/dl Direct Bilirubin 0.00mg/dl Indirect Bilirubin 0.8mg/dl Aspartate Amino Transf (AST/SGOT) 40IU/L Alanine Aminotransferase (ALT/SGPT) 41IU/L Alkaline Phosphatase 229IU/L Troponin I < 0.012ng/ml Total Protein 8.6g/dl Albumin 4.9g/dl Globulin 3.70g/dl Albumin/Globulin Ratio 1.32 Lipase 143U/L Current Medications Medications (Trade) Dose Ordered Sig/Susan Route PRN Reason Start Time Stop Time Status Last Admin Dose Admin Sodium Chloride (NS) 1,000 ml @ 1,000 mls/hr Q1H STAT IV 02/01/17 04:09 02/01/17 05:08 DC 02/01/17 04:29 Morphine Sulfate (morphine) 2 mg ONCE STAT IV 02/01/17 04:09 02/01/17 04:10 DC 02/01/17 04:29 Ondansetron HCl (Zofran Inj) 4 mg ONCE STAT IV 02/01/17 04:09 02/01/17 04:10 DC 02/01/17 04:29 IV Flush 10 ml 10 ml STK-MED ONCE .ROUTE 02/01/17 05:03 02/01/17 05:04 DC 02/01/17 05:45 Sodium Chloride (NS) 100 ml @ ud STK-MED ONCE .ROUTE 02/01/17 05:03 02/01/17 05:04 DC 02/01/17 05:45 Iodixanol (Visipaque Locm) 100 ml STK-MED ONCE .ROUTE 02/01/17 05:03 02/01/17 05:04 DC 02/01/17 05:45 Procedures/MDM EKG read by me: Time 424, rate 90 Rhythm: Normal sinus [place]: Normal Intervals: Normal ST-T waves: no ischemic changes Ectopy: No Q-waves: No Impression: No evidence of ischemia or arrhythmia MDM: Patient is a 81-year-old female who presents with 1 week of right upper quadrant pain. She is status post cholecystectomy. CT scan of the abdomen shows no significant abnormality. She has a relatively benign abdominal exam. There is no evidence of kidney stone, aortic pathology, or UTI. She does not appear constipated. She is tolerating oral intake. There are no features that are concerning for mesenteric ischemia. The patient has history of multiple ER visits to different ERs for pain complaints without clear diagnoses according to family. I will discharge the patient with a prescription for MiraLAX in case of subclinical constipation, and advised her and family on need for close PMD follow-up and return precautions for fever, vomiting, or worsening pain. Departure Diagnosis: Primary Impression: Abdominal pain Abdominal location: right upper quadrant Qualified Code: R10.11 - Right upper quadrant abdominal pain Condition: Stable NOLBERTO LUNDBERG MD Feb 01, 2017 07:24
[2017-02-01] MEDS ORDERED: POLY17PO6 PO (07:35)
[2017-02-01] MEDS ORDERED: ACET500C5 PO (07:35)
[2017-02-01 07:44] VITALS: BP 145/65; PULSE 65; RESP 19; TEMP 97.1
== END 2017-02-01 07:46 | disposition home or self-care (01) ==
LOC: E/R 03:51
DX: R10.11 Right upper quadrant pain (principal); E11.9 Type 2 diabetes mellitus without complications; I10 Essential (primary) hypertension; Z79.4 Long term (current) use of insulin; Z79.82 Long term (current) use of aspirin; Z79.84 Long term (current) use of oral hypoglycemic drugs
CPT/HCPCS: 36415; 74177; 80053; 81003; 83690; 84484; 85025; 93005; 96374; 96375; 99285; J2270; J2405; J7030; Q9967

== ENCOUNTER 2017-04-08 08:52 | Emergency (ER) | payer OTHER, MEDICAID ==
[~2017-04-08] VITALS: Ht 157.5 cm; Wt 89.0 kg
[~2017-04-08 08:52] MED LIST changes: +ACET500C5 PO; +POLY17PO6 PO
[2017-04-08 08:55] VITALS: Ht 157.5 cm; Wt 89.0 kg
[2017-04-08] MEDS ORDERED: ASPIRIN 81 MG TAB PO ONE (10:00)
--- NOTE | 2017-04-08 10:00 | ERD ---
ER Documentation Chief Complaint Chief Complaint sob since last night HPI Patient is a 81-year-old female who presents with gradual onset, constant, moderate dyspnea associated with substernal chest pressure for the last 4 days. History is limited due to the patient giving inconsistent answers to multiple questions. Patient denies fever, cough, vomiting. ROS All systems reviewed and are negative except as per history of present illness. Medications Home Meds Active Scripts Polyethylene Glycol* (Miralax*) 17 Gm Powd.pack, 17 GM PO DAILY, #3 PACKET Prov:NOLBERTO LUNDBERG MD 02/01/17 Acetaminophen* (Tylophen*) 500 Mg Capsule, 2 CAP PO Q8H Y for PAIN AND OR ELEVATED TEMP, #20 CAP Prov:NOLBERTO LUNDBERG MD 02/01/17 Pantoprazole* (Protonix*) 40 Mg Tablet.dr, 40 MG PO DAILY, #20 TAB Prov:IVA DAUGHERTY MD 12/30/16 Reported Medications Memantine* (Namenda*) 10 Mg Tablet, 10 MG PO DAILY, #30 TAB 07/20/16 Losartan Potassium* (Losartan Potassium*) 25 Mg Tablet, 12.5 MG PO DAILY, TAB 07/20/16 Aspirin* (Aspirin* EC) 81 Mg Tablet.dr, 81 MG PO DAILY, TAB 07/20/16 Pantoprazole* (Pantoprazole*) 40 Mg Tablet.dr, 40 MG PO AC BREAKFAST, TAB 11/30/15 Insulin Glargine* (Lantus*) 100 Unit/Ml Soln, 35 UNIT SC QHS, #1 VIAL 10/12/15 Atorvastatin* (Atorvastatin*) 40 Mg Tablet, 40 MG PO QHS, #30 TAB 10/12/15 Cholecalciferol (Vitamin D3) (VITAMIN D-3) 2,000 Unit Capsule, 2000 UNIT PO DAILY 05/20/14 Metformin* (Glucophage*) 1,000 Mg Tablet, 1000 MG PO BID WITH MEALS, TAB 03/06/14 Allergies Allergies: Coded Allergies: No Known Allergies (Verified Allergy, Unknown, 04/08/17) PMhx/Soc Medical history: Diabetes mellitus, hypertension, hyperlipidemia Past surgical history: Denies Social history: Denies tobacco or alcohol History of Surgery: Yes (gb) Anesthesia Reaction: No Hx Neurological Disorder: Yes (Dementia) Hx Respiratory Disorders: No Hx Cardiac Disorders: Yes (htn) Hx Psychiatric Problems: No Hx Alcohol Use: No Hx Substance Use: No Hx Tobacco Use: No FmHx Noncontributory Physical Exam Vitals Vital Signs Date Time Temp Pulse Resp B/P Pulse Ox O2 Delivery O2 Flow Rate FiO2 04/08/17 13:39 88 144/73 99 Room Air 04/08/17 11:49 84 19 176/83 99 Room Air 04/08/17 11:49 Nasal Cannula 04/08/17 08:55 98.2 97 18 172/81 99 Physical Exam Const: Alert, no acute distress Head: Atraumatic Eyes: Normal Conjunctiva no pallor, no icterus ENT: Normal External Ears, Nose and Mouth. Membranes moist Neck: Full range of motion. Borderline JVD Resp: Clear to auscultation bilaterally, no wheezes, no rales Cardio: Regular rate and rhythm, no murmurs Abd: Soft, non tender, non distended. Skin: No petechiae or rashes Back: No midline or flank tenderness Ext: No cyanosis, or edema Neur: Awake and alert cranial nerves II through XII intact bilaterally, strength and sensation full in 4 extremities Psych: Normal Mood and Affect Result Diagram: 04/08/17 1000 04/08/17 1000 Results 24 hrs Laboratory Tests Test 04/08/17 10:00 White Blood Count 11.010^3/ul Red Blood Count 3.7410^6/ul Hemoglobin 9.4g/dl Hematocrit 28.7% Mean Corpuscular Volume 76.7fl Mean Corpuscular Hemoglobin 25.1pg Mean Corpuscular Hemoglobin Concent 32.8g/dl Red Cell Distribution Width 18.1% Platelet Count 65267^3/UL Mean Platelet Volume 9.9fl Neutrophils % 74.9% Lymphocytes % 16.7% Monocytes % 6.2% Eosinophils % 1.3% Basophils % 0.4% Nucleated Red Blood Cells % 0.0/100WBC Neutrophils # 8.210^3/ul Lymphocytes # 1.810^3/ul Monocytes # 0.710^3/ul Eosinophils # 0.110^3/ul Basophils # 0.010^3/ul Nucleated Red Blood Cells # 0.010^3/ul Prothrombin Time 13.5Sec Prothrombin Time Ratio 1.1 INR International Normalized Ratio 1.02 Urine Color COLORLESS Urine Clarity CLEAR Urine pH 7.0 Urine Specific [place] 1.005 Urine Ketones NEGATIVEmg/dL Urine Nitrite NEGATIVEmg/dL Urine Bilirubin NEGATIVEmg/dL Urine Urobilinogen NEGATIVEmg/dL Urine Leukocyte Esterase NEGATIVELeu/ul Urine Hemoglobin NEGATIVEmg/dL Urine Glucose NEGATIVEmg/dL Urine Total Protein NEGATIVEmg/dl Sodium Level 140mmol/L Potassium Level 3.8mmol/L Chloride Level 98mmol/L Carbon Dioxide Level 29mmol/L Anion Gap 17 Blood Urea Nitrogen 17mg/dl Creatinine 0.82mg/dl Glucose Level 167mg/dl Calcium Level 10.2mg/dl Total Bilirubin 0.6mg/dl Direct Bilirubin 0.00mg/dl Indirect Bilirubin 0.6mg/dl Aspartate Amino Transf (AST/SGOT) 30IU/L Alanine Aminotransferase (ALT/SGPT) 29IU/L Alkaline Phosphatase 147IU/L Troponin I < 0.012ng/ml B-Type Natriuretic Peptide 48PG/ML Total Protein 8.0g/dl Albumin 4.3g/dl Globulin 3.70g/dl Albumin/Globulin Ratio 1.16 Current Medications Medications (Trade) Dose Ordered Sig/Susan Route PRN Reason Start Time Stop Time Status Last Admin Dose Admin Aspirin (Aspirin) 162 mg ONCE ONCE PO 04/08/17 10:00 04/08/17 10:01 DC 04/08/17 10:19 Procedures/MDM EKG read by me: Time 902, rate 97 Rhythm: Normal sinus [place]: Normal Intervals: Normal ST-T waves: no ischemic changes Ectopy: No Q-waves: No Impression: No evidence of ischemia or arrhythmia MDM: Patient is a 81-year-old female who presents to the ER with chest pain and shortness of breath. She initially told me that her chest pain and shortness of breath have both been constant for 4 days. The patient was a somewhat poor historian and did not give entirely consistent history. Her EKG was nonischemic and troponin was negative. There are no features that are concerning for aortic dissection or pulmonary embolism. I reviewed the patient' s chart, and she has nearly a dozen ER visits for similar symptoms over the last several years. All workups have been negative. The patient has been advised to follow-up with her PMD, but has not been referred to cardiology. Given the chronicity of her symptoms and normal lab test today, I believe that the patient can be safely discharged with close follow-up with her PMD. She was advised to return precautions for any new or worsening symptoms. Departure Diagnosis: Primary Impression: Shortness of breath Condition: Stable NOLBERTO LUNDBERG MD Apr 08, 2017 10:00
[2017-04-08 10:21] LABS: BASOPHILS % 0.4 % (0.0-2.0); EOSINOPHILS # 0.1 10^3/ul (0.0-0.5); EOSINOPHILS % 1.3 % (0.0-7.0); HEMATOCRIT 28.7 % (37.0-47.0); HEMOGLOBIN 9.4 g/dl (12.0-16.0); LYMPHOCYTES # 1.8 10^3/ul (0.8-2.9); LYMPHOCYTES % 16.7 % (15.0-51.0); MEAN CORPUSCULAR HEMOGLOBIN 25.1 pg (29.0-33.0); MEAN CORPUSCULAR HGB CONC 32.8 g/dl (32.0-37.0); MEAN CORPUSCULAR VOLUME 76.7 fl (82.0-101.0); MEAN PLATELET VOLUME 9.9 fl (7.4-10.4); MONOCYTE # 0.7 10^3/ul (0.3-0.9); MONOCYTES % 6.2 % (0.0-11.0); NEUTROPHIL # 8.2 10^3/ul (1.6-7.5); NEUTROPHILS % 74.9 % (39.0-77.0); PLATELET COUNT 385 10^3/UL (140-415); RED BLOOD COUNT 3.74 10^6/ul (4.20-5.40); RED CELL DISTRIBUTION WIDTH 18.1 % (11.5-14.5)
[2017-04-08 10:26] LABS: ADD UMIC NO; UR ASCORBIC ACID NEGATIVE (NEGATIVE); UR BILIRUBIN (Dip) NEGATIVE (NEGATIVE); UR BLOOD (Dip) NEGATIVE (NEGATIVE); UR CLARITY CLEAR (CLEAR); UR COLOR COLORLESS (YELLOW); UR GLUCOSE (Dip) NEGATIVE (NEGATIVE); UR KETONES (Dip) NEGATIVE (NEGATIVE); UR LEUKOCYTE ESTERASE (Dip) NEGATIVE Leu/ul (NEGATIVE); UR NITRITE (Dip) NEGATIVE (NEGATIVE); UR SPECIFIC GRAVITY (Dip) 1.005 (1.003-1.030); UR TOTAL PROTEIN (Dip) NEGATIVE (NEGATIVE); UR UROBILINOGEN (Dip) NEGATIVE (NEGATIVE)
[2017-04-08 11:03] LABS: ALANINE AMINOTRANSFERASE 29 IU/L (13-69); ALBUMIN 4.3 g/dl (3.3-4.9); ALBUMIN/GLOBULIN RATIO 1.16; ALKALINE PHOSPHATASE 147 IU/L (42-121); ANION GAP 17 (8-16); ASPARTATE AMINO TRANSFERASE 30 IU/L (15-46); BILIRUBIN,INDIRECT 0.6 mg/dl (0-1.1); BILIRUBIN,TOTAL 0.6 mg/dl (0.2-1.3); BLOOD UREA NITROGEN 17 mg/dl (7-20); CALCIUM 10.2 mg/dl (8.4-10.2); CARBON DIOXIDE 29 mmol/L (21-31); CHLORIDE 98 mmol/L (97-110); CREATININE 0.82 mg/dl (0.44-1.00); GLUCOSE 167 mg/dl (70-220); POTASSIUM 3.8 mmol/L (3.5-5.1); SODIUM 140 mmol/L (135-144)
[2017-04-08 11:09] LABS: INR 1.02; PROTIME 13.5 Sec (11.9-14.9); PT RATIO 1.1
[2017-04-08 11:11] LABS: B-TYPE NATRIURETIC PEPTIDE 48 PG/ML (0-450)
--- NOTE | 2017-04-08 11:11 | RADRPT ---
PROCEDURE: Chest x-ray CLINICAL INDICATION: Shortness of breath TECHNIQUE: Chest single view COMPARISON: 12/15/2016 FINDINGS: There is stable mild cardiomegaly and an sclerotic aortic calcification. The pulmonary vessels are n ormal in caliber. The lungs are clear. The costophrenic angles are sharp. The visualized bony tho rax is unremarkable. IMPRESSION: No acute cardiopulmonary disease. Stable mild cardiomegaly and atherosclerotic aortic calcification RPTAT: HH .Erick Yuen MD, Date Time Electronically viewed and signed by .Erick Yuen MD, on 04/08/2017 11:11 .W/
[2017-04-08 11:24] LABS: TROPONIN-I < 0.012 ng/ml (0.00-0.12)
[2017-04-08 11:49] VITALS: RESP 19
[2017-04-08 13:39] VITALS: BP 144/73; PULSE 88
== END 2017-04-08 13:39 | disposition home or self-care (01) ==
LOC: E/R 08:52
DX: R06.02 Shortness of breath (principal); E11.9 Type 2 diabetes mellitus without complications; I10 Essential (primary) hypertension; Z79.84 Long term (current) use of oral hypoglycemic drugs; Z79.82 Long term (current) use of aspirin
CPT/HCPCS: 36415; 71010; 80053; 81003; 83880; 84484; 85025; 85610; 93005

== ENCOUNTER 2018-01-23 08:07 | Emergency (ER) | END 2018-01-23 10:32 | disposition home or self-care (01) ==

== ENCOUNTER 2018-05-08 12:22 | Emergency (ER) | payer OTHER, MEDICAID ==
[~2018-05-08] VITALS: Ht 152.4 cm; Wt 76.6 kg
[~2018-05-08 12:22] MED LIST changes: +ALPR0.25 PO; -ASPI-664 PO; +ASPI-817 PO; +LOSA25TA12 PO; -LOSA25TA5 PO; +MEMA10TA PO; -MEMA10TA16 PO
[2018-05-08 12:25] VITALS: Ht 152.4 cm; Wt 76.6 kg
--- NOTE | 2018-05-08 15:16 | ERD ---
ER Documentation Chief Complaint Chief Complaint ABSCESS TO R EAR HPI 82-year-old female presents with some swelling right side of her neck possibly for last 3-4 weeks. She was prescribed Augmentin by her primary doctor but has not filled it yet. She does have a sore in her right external ear as well. She has no fevers, vomiting, shortness of breath or chest pain. Patient states that she had an x-ray through her primary doctor but is uncertain of results. ROS All systems reviewed and are negative except as per history of present illness. Medications Home Meds Active Scripts Alprazolam* (Xanax*) 0.25 Mg Tablet, 0.25 MG PO Q8H PRN for ANXIETY, #20 TAB Prov:ANA GRAVES DO 01/23/18 Polyethylene Glycol* (Miralax*) 17 Gm Powd.pack, 17 GM PO DAILY, #3 PACKET Prov:NOLBERTO LUNDBERG MD 02/01/17 Acetaminophen* (Tylophen*) 500 Mg Capsule, 2 CAP PO Q8H PRN for PAIN AND OR ELEVATED TEMP, #20 CAP Prov:NOLBERTO LUNDBERG MD 02/01/17 Pantoprazole* (Protonix*) 40 Mg Tablet., 40 MG PO DAILY, #20 TAB Prov:IVA DAUGHERTY MD 12/30/16 Reported Medications Memantine* (Namenda*) 10 Mg Tablet, 10 MG PO DAILY, #30 TAB 07/20/16 Losartan Potassium* (Losartan Potassium*) 25 Mg Tablet, 12.5 MG PO DAILY, TAB 07/20/16 Aspirin* (Aspirin* EC) 81 Mg Tablet.dr, 81 MG PO DAILY, TAB 07/20/16 Pantoprazole* (Pantoprazole*) 40 Mg Tablet.dr, 40 MG PO AC BREAKFAST, TAB 11/30/15 Insulin Glargine* (Lantus*) 100 Unit/Ml Soln, 35 UNIT SC QHS, #1 VIAL 10/12/15 Atorvastatin* (Atorvastatin*) 40 Mg Tablet, 40 MG PO QHS, #30 TAB 10/12/15 Cholecalciferol (Vitamin D3) (VITAMIN D-3) 2,000 Unit Capsule, 2000 UNIT PO DAILY 05/20/14 Metformin* (Glucophage*) 1,000 Mg Tablet, 1000 MG PO BID WITH MEALS, TAB 03/06/14 Allergies Allergies: Coded Allergies: No Known Allergies (Verified Allergy, Unknown, 04/08/17) PMhx/Soc History of Surgery: Yes (gb) Anesthesia Reaction: No Hx Neurological Disorder: Yes (Dementia) Hx Respiratory Disorders: No Hx Cardiac Disorders: Yes (htn) Hx Psychiatric Problems: No Hx Alcohol Use: No Hx Substance Use: No Hx Tobacco Use: No Smoking Status: Never smoker FmHx Family History: No diabetes, No coronary disease, No other Physical Exam Vitals Vital Signs Date Temp Pulse Resp B/P (MAP) Pulse Ox O2 O2 Flow FiO2 Time Delivery Rate 05/08/18 97.1 91 18 171/80 99 12:25 (110) Physical Exam Const: No acute distress Head: Atraumatic Eyes: Normal Conjunctiva ENT: Normal External Ears, Nose and Mouth. Neck: Full range of motion. No meningismus. Nodular swelling in the right anterior cervical area. No warmth, erythema or fluctuance. There is a small healing scab with some minimal surrounding redness on the right external ear. Resp: Clear to auscultation bilaterally Cardio: Regular rate and rhythm, no murmurs Abd: Soft, non tender, non distended. Normal bowel sounds Skin: No petechiae or rashes Back: No midline or flank tenderness Ext: No cyanosis, or edema Neur: Awake and alert Psych: Normal Mood and Affect Procedures/MDM Neck ultrasound shows lymphadenitis in the area of concern. Chest X-ray 1V Interpreted by me: Soft Tissue: No acute abnormalities Bones: No acute abnormalities Mediastinum/Cardiac Silhouette/Lungs: No acute abnormalities. Impression- normal 1 view chest x-ray. No evidence of active TB. She presents with right-sided neck lymphadenitis. It is nodular and non- erythematous. There is corresponding skin lesion on the right external ear. She will be discharged home with recommendations to continue antibiotics prescribed by primary doctor but recommending ENT evaluation for possible biopsy given the nodularity of the lesions. No evidence of airway obstruction, signs of sepsis. She will be discharged home with return precautions for shortness of breath, fevers, new worsening symptoms otherwise with primary doctor and ENT as advised. The patient was stable with no new complaints during the ER course. Clinically, there is no current evidence to suggest meningitis, sepsis, acute abdomen, pneumonia, stroke, acute coronary syndrome, pulmonary embolism, aortic dissection or any other emergent condition appearing to require further evaluation or hospitalization. Patient counseled regarding my diagnostic impression and care plan. Prior to discharge all questions answered. Pt agrees with treatment plan and understands strict return precautions. Pt is instructed to follow up with primary care provider within 24-48 hours. Precautionary instructions provided including instructions to return to the ER if not improving or for any worsening or changing symptoms or concerns. Departure Diagnosis: Primary Impression: Lymph nodes enlarged Condition: Stable Patient Instructions: Lymphangitis Referrals: YANET RAMIREZ MD Additional Instructions: ultrsonido dice es glandulo lymphatico. recomiendo specialista de garganta, posiblement biopsia. SAUL PADILLA MD May 08, 2018 15:16
== END 2018-05-08 15:21 | disposition home or self-care (01) ==
LOC: FTE 12:22
DX: R59.9 Enlarged lymph nodes, unspecified (principal); I10 Essential (primary) hypertension; Z79.82 Long term (current) use of aspirin; Z79.84 Long term (current) use of oral hypoglycemic drugs
CPT/HCPCS: 71045; 76536

== ENCOUNTER 2018-06-20 11:26 | Emergency (ER) | payer OTHER, MEDICAID ==
[~2018-06-20] VITALS: Ht 157.5 cm; Wt 74.8 kg
[2018-06-20 11:28] VITALS: BP 201/88; PULSE 100; RESP 19; Ht 157.5 cm; Wt 74.8 kg
[2018-06-20] MEDS ORDERED: HYDR-4011 PO (11:51)
--- NOTE | 2018-06-20 11:53 | ERD ---
ER Documentation Chief Complaint Chief Complaint right side jaw pain/swelling x 2 months HPI 82-year-old female presents the emergency room with her family complaining of pain in neck mass. Patient is been undergoing a workup for a tumor on the right side of her neck. She is status post biopsy and awaiting results. She continues to have pain in the area of the tumor. She reports no fevers, chills, difficulty swallowing. ROS All systems reviewed and are negative except as per history of present illness. Medications Home Meds Active Scripts Hydrocodone/Acetaminophen (Volcano 5-325 Tablet) 1 Each Tablet, 1 TAB PO Q6H PRN for PAIN, #7 TAB Prov:CHARLIE LOCKHART 06/20/18 Alprazolam* (Xanax*) 0.25 Mg Tablet, 0.25 MG PO Q8H PRN for ANXIETY, #20 TAB Prov:ANA GRAVES DO 01/23/18 Polyethylene Glycol* (Miralax*) 17 Gm Powd.pack, 17 GM PO DAILY, #3 PACKET Prov:NOLBERTO LUNDBERG MD 02/01/17 Acetaminophen* (Tylophen*) 500 Mg Capsule, 2 CAP PO Q8H PRN for PAIN AND OR ELEVATED TEMP, #20 CAP Prov:NOLBERTO LUNDBERG MD 02/01/17 Pantoprazole* (Protonix*) 40 Mg Tablet., 40 MG PO DAILY, #20 TAB Prov:IVA DAUGHERTY MD 12/30/16 Reported Medications Memantine* (Namenda*) 10 Mg Tablet, 10 MG PO DAILY, #30 TAB 07/20/16 Losartan Potassium* (Losartan Potassium*) 25 Mg Tablet, 12.5 MG PO DAILY, TAB 07/20/16 Aspirin* (Aspirin* EC) 81 Mg Tablet.dr, 81 MG PO DAILY, TAB 07/20/16 Pantoprazole* (Pantoprazole*) 40 Mg Tablet., 40 MG PO AC BREAKFAST, TAB 11/30/15 Insulin Glargine* (Lantus*) 100 Unit/Ml Soln, 35 UNIT SC QHS, #1 VIAL 10/12/15 Atorvastatin* (Atorvastatin*) 40 Mg Tablet, 40 MG PO QHS, #30 TAB 10/12/15 Cholecalciferol (Vitamin D3) (VITAMIN D-3) 2,000 Unit Capsule, 2000 UNIT PO DAILY 05/20/14 Metformin* (Glucophage*) 1,000 Mg Tablet, 1000 MG PO BID WITH MEALS, TAB 03/06/14 Allergies Allergies: Coded Allergies: No Known Allergies (Verified Allergy, Unknown, 04/08/17) PMhx/Soc History of Surgery: Yes (gb) Anesthesia Reaction: No Hx Neurological Disorder: Yes (Dementia) Hx Respiratory Disorders: No Hx Cardiac Disorders: Yes (htn) Hx Psychiatric Problems: No Hx Alcohol Use: No Hx Substance Use: No Hx Tobacco Use: No Smoking Status: Never smoker Physical Exam Vitals Vital Signs Date Temp Pulse Resp B/P (MAP) Pulse Ox O2 O2 Flow FiO2 Time Delivery Rate 06/20/18 98.2 100 19 201/88 97 11:28 (125) Physical Exam GENERAL: The patient is well developed and appropriate for usual state of health in no apparent distress HEENT: Pupils equal, round, and reactive to light. EOMI. There is no scleral icterus. NECK: There is a right sided mass underneath her right ear. There is no secondary infection. There is no bruit. LUNGS: Clear to auscultation bilaterally. There are no rales, wheezes or rhonchi. HEART: Regular rate and rhythm, no murmurs, clicks, rubs or gallops. Neuro: Patient is awake, alert, oriented. She has a nonfocal motor exam Procedures/MDM Patient was taken to a room, seen and examined Medical decision makin-year-old female presents the emergency department with a neck mass. 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 Patient will be provided with pain medication and is referred back to her specialist pending biopsy results Departure Diagnosis: Primary Impression: Mass in neck Patient Instructions: Tumor, Uncertain Cause Additional Instructions: Follow-up with your surgeon for the biopsy results. CHARLIE LOCKHART Jun 20, 2018 11:53
[2018-06-20] MEDS ORDERED: HYDROCODONE/APAP (5/325) TAB PO ONE (12:30)
== END 2018-06-20 12:26 | disposition home or self-care (01) ==
LOC: E/R 11:26
DX: R22.1 Localized swelling, mass and lump, neck (principal); I10 Essential (primary) hypertension; E11.9 Type 2 diabetes mellitus without complications; Z79.4 Long term (current) use of insulin; Z79.82 Long term (current) use of aspirin
CPT/HCPCS: 99283